=== PATIENT | female | born 1955 | race Caucasian/White ===

== ENCOUNTER → 2018-07-17 14:50 | Outpatient (CLI) | payer MEDICARE, BC, SELFPAY ==
[2018-07-17 15:23] LABS: Absolute Basophil Count 0.02 k/cumm (0.0-0.2); Absolute Eosinophil Count 0.14 k/cumm (0.0-0.7); Absolute Lymphocyte Count 0.72 k/cumm (1.2-3.4); Absolute Monocyte Count 0.66 k/cumm (0.11-0.7); Absolute Neutrophil Count 3.14 k/cumm (1.2-6.7); Basophils % 0.4; HCT 39.7 % (36.0-46.0); HGB 13.1 g/dL (12.0-15.5); Lymphocytes % 15.4; Mean Corpuscular Hemoglobin 29.8 pg (27.0-33.0); Mean Corpuscular Volume 90.4 fL (80-95); Mean Platelet Volume 10.2 fL (8.0-11.0); Monocytes % 14.1; Neutrophils % 67.1; Platelet Count 229 x1000/uL (130-400); RBC 4.39 m/cumm (4.00-5.20); RBC Distribution Width 14.8 % (11.7-14.6); White Blood Cell Count 4.68 k/cumm (4.4-10.8)
[2018-07-17 16:23] LABS: ALT 25 U/L (12-78); AST 20 U/L (15-37); Alkaline Phosphatase 55 U/L (46-116); BUN 19 mg/dL (7-18); Bilirubin, Total 0.4 mg/dL (0.2-1.0); CREATININE 1.05 mg/dL (0.55-1.02); Calcium 9.2 mg/dL (8.5-10.1); Chloride 105 mmol/L (98-107); Estimated GFR 52.93 (mL/min/1.73m2); Glucose 110 mg/dL (70-100); Potassium 4.1 mmol/L (3.5-5.1); Sodium 140 mmol/L (136-145); TSH 0.66 uIU/mL (0.358-3.74)
== END ==
PROVIDERS: PCP Emergency Medicine; Visit Provider Emergency Medicine
DX: E03.9 Hypothyroidism, unspecified (principal); R63.4 Abnormal weight loss
CPT/HCPCS: 36415; 80053; 84443; 85025

== ENCOUNTER → 2018-10-06 14:29 | Outpatient (BNVA) | payer MEDICARE, BC, SELFPAY | PROVIDERS: PCP Emergency Medicine; Referring Provider Emergency Medicine; Visit Provider Student in an Organized Health Care Education/Training Program | DX: M24.512 Contracture, left shoulder (principal); M62.542 Muscle wasting and atrophy, not elsewhere classified, left hand; M62.541 Muscle wasting and atrophy, not elsewhere classified, right hand | CPT/HCPCS: 99213 ==

== ENCOUNTER → 2019-04-15 14:24 | Outpatient (BNVA) | payer MEDICARE, BC, SELFPAY | PROVIDERS: PCP Emergency Medicine; Visit Provider Psychiatry & Neurology Neurology | DX: T45.1X1A Poisoning by antineoplastic and immunosuppressive drugs, accidental (unintentional), initial encounter (principal); G35 Multiple sclerosis; G40.109 Localization-related (focal) (partial) symptomatic epilepsy and epileptic syndromes with simple partial seizures, not intractable, without status epilepticus; G93.40 Encephalopathy, unspecified | CPT/HCPCS: 99214 ==

== ENCOUNTER 2019-07-14 00:30 | Outpatient (CLI) | payer MEDICARE, BC, SELFPAY ==
--- NOTE | 2019-07-14 13:25 | DI.MAMMO_ITS ---
SYMPTOMS/DIAGNOSIS: SCREENING, Z12.31 MAMMOGRAMS: Mammograms were interpreted according to the usual protocol including computer analysis with CAD system, tomosynthesis and C view imaging. The breasts are heterogeneously dense. No dominant mass or clumped microcalcification is identified in either breast. Current examination is compared with previous examinations including February 2017 and there has been no gross interval change in appearance in comparison with the previous studies. CONCLUSION: No specific evidence of malignancy at this time. Routine screening examinations are suggested at yearly intervals due to the family history of breast carcinoma. Category 1, breast density category C. MQSA ASSESSMENT OF FINDINGS: Negative. Category 1. Patient will receive a letter notifying them of these results. Bi-RADS category C. The breasts are heterogeneously dense, which may obscure small masses.
== END 2019-07-14 00:50 ==
PROVIDERS: PCP Emergency Medicine; Visit Provider Emergency Medicine
DX: Z12.31 Encounter for screening mammogram for malignant neoplasm of breast (principal); Z80.3 Family history of malignant neoplasm of breast
CPT/HCPCS: 77063; 77067

== ENCOUNTER → 2020-04-11 13:35 | Outpatient (BNVA) | payer MEDICARE, BC, SELFPAY | PROVIDERS: PCP Emergency Medicine; Referring Provider Emergency Medicine; Visit Provider Psychiatry & Neurology Neurology | DX: G40.109 Localization-related (focal) (partial) symptomatic epilepsy and epileptic syndromes with simple partial seizures, not intractable, without status epilepticus (principal); G35 Multiple sclerosis; G93.40 Encephalopathy, unspecified | CPT/HCPCS: 99214 ==

== ENCOUNTER 2020-08-11 04:29 | Outpatient (CLI) | payer MEDICARE, BC, SELFPAY ==
[2020-08-11 13:19] LABS: TSH 0.85 uIU/mL (0.36-3.74)
== END 2020-08-11 04:49 ==
PROVIDERS: PCP Emergency Medicine; Visit Provider Emergency Medicine
DX: E03.9 Hypothyroidism, unspecified (principal)
CPT/HCPCS: 36415; 84443

== ENCOUNTER 2021-04-04 14:48 | Outpatient (REF) | payer MEDICARE, BC, SELFPAY ==
[2021-04-04 21:20] LABS: Anion Gap 6.7 mmol/L (3-11); BUN 18 mg/dL (7-18); CO2 31.3 mmol/L (21.0-32.0); CREATININE 1.1 mg/dL (0.55-1.02); Calcium 9.9 mg/dL (8.5-10.1); Calculated LDL 137 mg/dL (<100); Chloride 104 mmol/L (98-107); Cholesterol 230 mg/dL (<200); Estimated GFR 49.69 (mL/min/1.73m2); Glucose 82 mg/dL (74-106); HDL Cholesterol 80 mg/dL (40-60); Potassium 3.7 mmol/L (3.5-5.1); Sodium 142 mmol/L (136-145); Triglyceride 67 mg/dL (<150)
== END 2021-04-04 14:49 | disposition home or self-care (01) ==
LOC: LBN 14:48
PROVIDERS: PCP Emergency Medicine; Visit Provider Emergency Medicine
DX: I10 Essential (primary) hypertension (principal)
CPT/HCPCS: 80048; 80061

== ENCOUNTER → 2021-04-10 13:47 | Outpatient (BNVA) | payer MEDICARE, BC, SELFPAY | PROVIDERS: PCP Emergency Medicine; Referring Provider Emergency Medicine; Visit Provider Psychiatry & Neurology Neurology | DX: G40.109 Localization-related (focal) (partial) symptomatic epilepsy and epileptic syndromes with simple partial seizures, not intractable, without status epilepticus (principal); G35 Multiple sclerosis; G93.40 Encephalopathy, unspecified; I69.852 Hemiplegia and hemiparesis following other cerebrovascular disease affecting left dominant side; G82.50 Quadriplegia, unspecified; R13.10 Dysphagia, unspecified; R47.1 Dysarthria and anarthria | CPT/HCPCS: 99215 ==

== ENCOUNTER 2021-07-24 01:09 | Outpatient (CLI) | payer MEDICARE, BC, SELFPAY ==
--- NOTE | 2021-07-24 07:45 | DI.MAMMO_ITS ---
Exam(s) MAMMO SCREENING EXAM: MAMMO SCREENING CLINICAL HISTORY: screening,Z12.39 TECHNIQUE: Bilateral full field digital CC and MLO mammographic images were obtained with 3D tomosyn thesis and utilizing computer aided detection (CAD). COMPARISON: Available for comparison. FINDINGS: Masses/Architectural Distortion: None seen. Microcalcifications: No suspicious pleomorphic-type are seen. Skin Thickening/Nipple Retraction: None. IMPRESSION: 1. No significant interval change with no specific features of malignancy noted. 2. Unless there is more urgent need, screening mammography is recommended, as per [employer] guidelines. BI-RADS Category 1 - Negative Breast Density - Category C - Heterogeneously dense Breast density category C or D implies that the patient has dense breast tissue. Dense breast tissue is very common and is not abnormal but dense breast tissue can make it harder to find cancer on a ma mmogram. Also, dense breast tissue may increase their breast cancer risk. This information about the result of the mammogram report was provided to the patient to raise their awareness. Use this report when you speak with the patient about their risks for breast cancer, which includes their family hist ory. At that time, you may recommend for more screening tests (Ultrasound or MRI) as they might be us eful based on their risk. A negative radiographic report should not delay biopsy if a dominant or clinically suspicious mass is present. Up to ten percent of cancers are not identified on mammography. A negative report may reinforce clinical impression. Adenosis and dense breasts may obscure an underlying neoplasm. False positive reports average 6 to 10%. Patient will receive a letter notifying them of these results.
== END 2021-07-24 01:29 ==
PROVIDERS: PCP Emergency Medicine; Visit Provider Emergency Medicine
DX: Z12.31 Encounter for screening mammogram for malignant neoplasm of breast (principal)
CPT/HCPCS: 77063; 77067

== ENCOUNTER 2021-07-28 03:43 | Outpatient (CLI) | payer MEDICARE, BC, SELFPAY ==
[2021-07-28 14:09] LABS: Abs Immature Grans 0.01 10^3/uL (0.0-0.06); Absolute Basophil Count 0.02 10^3/uL (0.0-0.2); Absolute Eosinophil Count 0.08 10^3/uL (0.0-0.7); Absolute Lymphocyte Count 0.82 10^3/uL (1.2-3.4); Absolute Monocyte Count 0.67 10^3/uL (0.1-0.8); Absolute Neutrophil Count 3.06 10^3/uL (1.2-6.7); Basophils % 0.4; Eosinophils % 1.7; HGB 12.4 g/dL (11.2-15.7); Immature Grans % 0.2; Lymphocytes % 17.6; MCH 28.5 pg (27.0-33.0); MCHC 31.8 % (32.0-36.0); MCV 89.7 fL (80-95); MPV 9.3 fL (8.0-11.0); Monocytes % 14.4; Neutrophils % 65.7; Nucleated RBC 0 %; Platelet Count 227 10^3/uL (130-400); RBC 4.35 10^6/uL (3.93-5.22); RDW 13.5 % (11.7-14.6); RDW-SD 44.8 fL; WBC 4.66 10^3/uL (4.4-10.8)
== END 2021-07-28 03:44 | disposition home or self-care (01) ==
LOC: LBO 03:43
PROVIDERS: PCP Emergency Medicine; Visit Provider Psychiatry & Neurology Neurology
DX: G35 Multiple sclerosis (principal)
CPT/HCPCS: 36415; 85025

== ENCOUNTER 2021-07-29 12:16 | Emergency (ER) | payer MEDICARE, BC, SELFPAY ==
--- NOTE | 2021-07-29 12:15 | RT.EKG_ITS ---
APPROVED REPORT Exam: Resting ECG Reason for Exam: syncope Patient Location: E HR:70 bpm ECG Measurements Heart Rate 70 AXIS VA 178 P 66 QRSd 86 QRS 80 QT 392 T 50 QTc 423 Conclusion Sinus rhythm...normal P axis, V-rate 60- 99
[2021-07-29 12:22] VITALS: BP 164/83; PULSE 76; RESP 16; TEMP 36.5; O2SAT 99
--- NOTE | 2021-07-29 12:50 | ED.GENADUL_ITS ---
Discharge Plan Disposition Patient Disposition: HOME Condition: Stable Discharge Details Clinical Impression: Seizure Primary Care Provider: Rom Atwood ED Provider: Tre Ackerman Home Meds and New Rx's Prescriptions: Continued guaifenesin [Mucinex] 600 mg tablet extended release 12hr 600 mg PO BID Qty: 60 RF: 6 docusate sodium 100 MG capsule 1 cap PO daily prn RF: 0 coenzyme Q10 [CoQ-10] 100 MG capsule 100 mg PO BID RF: 0 calcium citrate-vitamin D3 [Calcium Citrate +] 1 EACH tablet 1 ea PO BID RF: 0 acetylcarnitine 500 MG capsule 500 mg PO DAILY RF: 0 [employer] 10 drp PO DAILY RF: 0 VITAL BRAIN POWDER 1 tsp PO DAILY RF: 0 melatonin 10 MG tablet,ext release multiphase 10 mg PO prn qhs RF: 0 multivitamin [Daily Multi-Vitamin] 1 EACH tablet 1 ea PO DAILY RF: 0 ipriflavone 300 mg PO BID RF: 0 strontium 1 cap PO DAILY RF: 0 cholecalciferol (vitamin D3) 1,000 unit tablet,chewable 4,000 unit PO DAILY Qty: 90 RF: 3 levothyroxine 100 mcg tablet 100 mcg PO DAILY Qty: 90 RF: 4 lorazepam [Ativan] 1 mg tablet 1 mg PO HS Qty: 90 RF: 3 sertraline 50 mg tablet 50 mg PO DAILY Qty: 90 RF: 4 ibuprofen [Advil Liqui-Gel] 200 MG capsule 400 mg PO PRN PRNRF: 0 Discharge Instructions Instructions: Recurrent Seizures in Adults (ED) Additional Instructions: follow up with your neurologist If you have fevers, multiple recurrent seizures or feel more ill return to the emergency department Medical Decision Making 65 yo female with history autoimmune encephalopathy with resultant quadriparesis, dysarthria, dysphagia, and cognitive loss, relapsing-remitting MS, seizure disorder who has come off her meds, prior ich from fall per chart review, who comes in with ems after she believes she had a seizure. She states she was getting into the shower when he left arm flexed at the elbow and was stuck this way and she couldn't move her left leg. She had no loc and was with her during this and lasted about 5 minutes. She currently has no complaints, denies fevers, chills, chest pain, abdomen pain. On exam she has very mild dysarthria, mild left nasolabial fol flattening, noraml quality improvement consultant strength bilaterally, normal strength of the right arm, left arm she has no strength at the bicep, and about 3/5 strength if the deltoid, and 5/5 at the triceps which is her baseline per her and on chart reivew. She has 5/5 strength in the lower extremities and normal sensation in all extremities. She did come off antiepileptics recently in the past month or so so suspect she did have a seizure, is back at baseline now so doubt cva. Will obtain labs to evaluate for electrolyte abnormalities and obtain ct head and reassess. pt continues to feel well and at her baseline. LAbs and imaging unremarkble. Discussed with her and she is going to call her neurologists office this week and discuss restarting her antiepileptic, hasn't had a seizure in years and has apparenlty been off her seizure med for over a month. Return precautions given Differential Diagnosis Differential Diagnosis: seizure, tia, electrolyte abnormality Medical Records Medical records reviewed: Yes I reviewed the patient's medical records. Imaging Data Radiologic Study: Attestation: I personally reviewed and interpreted this imaging study as follows: Imaging: CT Scan Radiologist's impression: no acute findings Lab Data Lab results reviewed: Yes I reviewed the patient's lab results. ECG Data Attestation: I personally reviewed and interpreted this ECG (s) as follows: Prior ECG tracings: not available for review Interpretation: sinus rhtyhm, rate of 70, no acute st t wave ischemic findings. HPI General Mode of arrival: EMS . Date/Time Provider Initiated Documentation: 07/29/21 12:18 . Limitations to Documentation: no limitations . Information obtained by: patient and family . History of Present Illness 65 year old F presents to the emergency department with the chief complaint of seizure, described as moderate, Patient started experiencing this hour(s) (1) and it has been now resolved. No relieving factors improve symptom(s), No exacerbating factors reported . Patient did receive the following treatments prior to arrival, none Related Data Home Medications Medication Instructions Recorded Confirmed docusate sodium 1 cap PO daily prn 02/27/13 07/29/21 acetylcarnitine 500 mg PO DAILY 10/14/15 07/29/21 calcium citrate-vitamin D3 1 ea PO BID 10/14/15 07/29/21 [Calcium Citrate +] coenzyme Q10 [CoQ-10] 100 mg PO BID 10/14/15 07/29/21 melatonin 10 mg PO prn qhs 03/05/16 07/29/21 ibuprofen [Advil Liqui-Gel] 400 mg PO PRN PRN 04/24/16 07/29/21 multivitamin [Daily Multi-Vitamin] 1 ea PO DAILY 07/02/17 07/29/21 Ipriflavone 300 mg PO BID 01/28/18 07/29/21 Strontium 1 cap PO DAILY 01/28/18 07/29/21 cholecalciferol (vitamin D3) 25 4,000 unit PO DAILY #90 tab 11/13/18 07/29/21 mcg (1,000 unit) chewable tablet guaifenesin 600 mg tablet, 600 mg PO BID #60 tab 05/10/20 07/29/21 extended release 12 hr levothyroxine 100 mcg tablet 100 mcg PO DAILY #90 tab-cap 07/26/20 07/29/21 lorazepam 1 mg tablet 1 mg PO HS #90 tab 12/16/20 07/29/21 sertraline 50 mg tablet 50 mg PO DAILY #90 tab-cap 06/16/21 07/29/21 Previous Rx's Medication Instructions Recorded guaifenesin 600 mg tablet, 600 mg PO BID #60 tab 05/10/20 extended release 12 hr levothyroxine 100 mcg tablet 100 mcg PO DAILY #90 tab-cap 07/26/20 lorazepam 1 mg tablet 1 mg PO HS #90 tab 12/16/20 sertraline 50 mg tablet 50 mg PO DAILY #90 tab-cap 06/16/21 Allergies Allergy/AdvReac Type Severity Reaction Status Date / Time azathioprine [From Imuran] AdvReac Severe hepatitis Verified 07/29/21 12:32 venlafaxine AdvReac elevated BP Verified 07/29/21 12:32 General Stated Complaint: CVA/TIA HUMBLE: 2 Review of Systems All systems reviewed & are unremarkable except as noted in HPI and below Constitutional Constitutional: Denies chills and Denies fever(s) Cardiovascular Cardiovascular: Denies chest pain and Denies dyspnea Respiratory Respiratory: Denies cough and Denies dyspnea Gastrointestinal Gastrointestinal: Denies abdominal pain, Denies nausea and Denies vomiting Musculoskeletal Musculoskeletal: Denies joint swelling [facility] Medical History Acute cystitis Age-related osteoporosis without current pathological fracture (11/05/17) Allergic rhinitis Anxiety Closed fracture of left hip with routine healing (06/06/16) pinning Depressive disorder Encephalopathy (03/06/17) 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 resolving quadriplegia. Residual frontal lobe damage. 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 x months, quadriplegia resolving, frontal lobe damage Insomnia Joint contracture of the upper arm (08/08/15) Leukocytopenia, unspecified secondary to Cytoxan Multiple sclerosis diagnosis questionable Nocturia more than twice per night (09/03/16) Subdural hematoma (06/06/16) Urgency of urination (09/03/16) Surgical History section Colonoscopy - MAC (12/11/17) History of section Replacement of total knee joint LEFT S/P percutaneous endoscopic gastrostomy (PEG) tube placement Status post hernia repair Status post total knee replacement Family History Mother Diabetes Essential hypertension Neoplasm COLON Father Diabetes Essential hypertension Neoplasm SQUAMOUS STAGE 4 Stroke Brother Essential hypertension Stroke Brother Essential hypertension Stroke Brother Substance abuse Essential hypertension Brother Essential hypertension Social History Smoking/Tobacco Use Status: Former Tobacco Use Tobacco: How many years used: 12 Second Hand Exposure: Yes Smoking risk assessment performed?: Yes Alcohol Intake: never Drug use: Never Caregiver/Support person: Yes Household members: spouse Housing: house Communication Needs: None Do you need help understanding health information?: Rarely current occupation: Retired teacher. On disability. Pets and animals: Yes Sexually active: No Do you think of yourself as: straight/heterosexual Current gender identity: female What is your relationship status?: How often do you talk on the phone with friends or family?: three or more times per week How often do you get together with friends or relatives?: once per week Do you belong to any clubs or organized social groups?: no Panel score (0-1 are the most socially isolated patients): 2 What type of physical activity do you participate in: walking and other Details: stationary bike, arm pulleys, Duration: 45-60 minutes/day Anh/Advent: No preference Special anh needs: No Seatbelt use: always Helmet use: Yes Helmet use: always Drive intox or ride w/intox sulky driver: No Do you feel safe in your relationship?: Yes Exam Const General: no acute distress Orientation: alert HENMT Head: normal to inspection Ears: external ears normal General nose exam: external nose normal Mouth: moist mucous membranes Eyes General: appearance normal, both eyes and all related structures Neck Neck: normal visual inspection Resp Effort & Inspection: normal respiratory effort and able to speak in complete sentences Cardio Rate: regular rate Skin General skin exam: no rashes or lesions noted Neuro General: patient alert and patient oriented x3 Extrem General: capillary refill normal Psych Mental Status: mental status grossly normal Course Vital Signs Vital signs: Vital Signs Temperature 36.5 C 07/29/21 12:22 Pulse 76 07/29/21 12:22 Respiratory Rate 16 07/29/21 12:22 Blood Pressure 164/83 H 07/29/21 12:22 Pulse Oximetry 99 07/29/21 12:22 Temperature 36.5 C 07/29/21 12:22 Temperature Source Temporal Artery Scan 07/29/21 12:22 Pulse 76 07/29/21 12:22 Respiratory Rate 16 07/29/21 12:22 Blood Pressure 164/83 H 07/29/21 12:22 Pulse Oximetry 99 07/29/21 12:22 Oxygen Delivery Method Room Air 07/29/21 12:22 Oxygen Flow Rate 0 07/29/21 12:22
[2021-07-29 13:14] LABS: Abs Immature Grans 0.03 10^3/uL (0.0-0.06); Absolute Basophil Count 0.02 10^3/uL (0.0-0.2); Absolute Eosinophil Count 0.04 10^3/uL (0.0-0.7); Absolute Lymphocyte Count 0.68 10^3/uL (1.2-3.4); Absolute Neutrophil Count 2.67 10^3/uL (1.2-6.7); Basophils % 0.5; HGB 13.5 g/dL (11.2-15.7); Immature Grans % 0.8; Lymphocytes % 17.3; MCH 28.7 pg (27.0-33.0); MCHC 32.1 % (32.0-36.0); MCV 89.4 fL (80-95); MPV 9.6 fL (8.0-11.0); Monocytes % 12.7; Neutrophils % 67.7; Nucleated RBC 0 %; Platelet Count 229 10^3/uL (130-400); RDW 13.5 % (11.7-14.6); RDW-SD 43.9 fL; WBC 3.94 10^3/uL (4.4-10.8)
[2021-07-29 13:32] LABS: ALT 29 U/L (14-59); AST 20 U/L (15-37); Albumin 4.8 g/dL (3.4-5.0); Alkaline Phosphatase 51 U/L (46-116); BUN 17 mg/dL (7-18); Bilirubin, Total 0.6 mg/dL (0.2-1.0); Calcium 11.2 mg/dL (8.5-10.1); Chloride 102 mmol/L (98-107); Estimated GFR 55.47 (mL/min/1.73m2); Glucose 117 mg/dL (74-106); Sodium 140 mmol/L (136-145); Total Protein 8.3 g/dL (6.4-8.2); Troponin I < 0.05 ng/mL (<0.06)
[2021-07-29] MEDS: Omnipaque 350 MG/ML 100 ML BTL IJ (13:40)
[2021-07-29] MEDS: Normal Saline Flush 10 ML SYR IVP (13:41)
--- NOTE | 2021-07-29 13:45 | DI.CT_ITS ---
Exam(s) CT BRAIN NECK CTA EXAM: CT BRAIN NECK CTA CLINICAL HISTORY: ?seizure vs tia. TECHNIQUE: Imaging Protocol: Axial CT angiography was performed with multi-slice acquisition and mu lti-planar and/or 3D reconstructions. CONTRAST MATERIAL: Intravenous: Omnipaque 350 Contrast volume:85 cc FINDINGS: CT Head W/O and W contrast: Ventricles and Extra axial spaces: Stable ventricular dilatation, particularly the temporal horns. Hemorrhage: None. Cerebral parenchyma: Stable areas of low attenuation in the white matter. No acute infarct or mass. Midline shift: None. Brainstem/Cerebellum: Normal. Calvarium: Normal. Visualized Paranasal sinuses/Mastoids: Mucous retention cysts maxillary sinuses and right ethmoid sin us. Soft Tissues: Unremarkable. Enhancement: Normal. CTA Brain W: Internal Carotid Arteries: Petrous: Normal. Cavernous: Normal. Cerebral: Normal. Middle Cerebral Arteries: Right: No aneurysm, occlusion or significant stenosis. Left: No aneurysm, occlusion or significant stenosis. Anterior Cerebral Arteries: Right: No aneurysm, occlusion or significant stenosis. Left: No aneurysm, occlusion or significant stenosis. Posterior cerebral Arteries: Right: No aneurysm, occlusion or significant stenosis. Left: No aneurysm, occlusion or significant stenosis. Vertebral Arteries: Right: No aneurysm, occlusion or significant stenosis. Left: No aneurysm, occlusion or significant stenosis. Basilar Artery: No aneurysm, occlusion or significant stenosis. CTA Neck W: Common Carotid: Right: No aneurysm, occlusion or significant stenosis. Left: No aneurysm, occlusion or significant stenosis. External Carotid: Right: No aneurysm, occlusion or significant stenosis. Left: No aneurysm, occlusion or significant stenosis. Internal Carotid: Right: No aneurysm, occlusion or significant stenosis. Left: No aneurysm, occlusion or significant stenosis. Vertebral Artery: Right: No aneurysm, occlusion or significant stenosis. Left: No aneurysm, occlusion or significant stenosis. Lung Apices: Normal. Bones: Degenerative changes at C5-6 well as facet joints greatest at C 2 3 and C3-4. Soft Tissues: Normal. IMPRESSION: 1. Normal CTA examination of the [place]. 2. Stable ventricular dilatation and white matter changes of small vessel disease. No acute abnormal ity of the brain. 3. Normal CTA examination of the neck. RADIATION DOSE DELIVERED: 1,715.68mGy.cm Total DLP DATA REPOSITORY: All CT scans at this facility are submitted to the National Radiology Data Registry (NRDR) Dose Index Registry (DIR) with the [employer] (A[employer]). RADIATION OPTIMIZATION: All CT scans at this facility use at least one of these dose optimization te chniques: automated exposure control; mA and/or kV adjustment per patient size (includes targeted exa ms where dose is matched to clinical indication); or iterative reconstruction.
[2021-07-29 13:54] LABS: Bilirubin Negative (Negative); Blood Negative (Negative); Clarity Sl Cloudy (Clear); Glucose Negative (Negative); Ketones Negative (Negative); Leukocyte Esterase Negative (Negative); Nitrite Negative (Negative); Specific Gravity 1.015 (1.005-1.025); Urobilinogen 0.2 EU/dL (Up TO 0.2); pH 8.5 (5-8)
--- NOTE | 2021-07-29 14:00 | DI.VRAD_ITS ---
PROCEDURE INFORMATION: Exam: CT Angiography Head With Contrast, Arteriography Exam date and time: 07/29/2021 12:42 PM Age: 65 years old Clinical indication: Other: ? Seizure vs TIA TECHNIQUE: Imaging protocol: Computed tomography angiography of the head with contrast. Exam focused on the arteries. 3D rendering (Not supervised by radiologist): MIP and/or 3D reconstructed images were created by the technologist. Radiation optimization: All CT scans at this facility use at least one of these dose optimization techniques: automated exposure control; mA and/or kV adjustment per patient size (includes targeted exams where dose is matched to clinical indication); or iterative reconstruction. Contrast material: OMNIPAQUE 350; Contrast volume: 85 ml; Contrast route: INTRAVENOUS (IV); COMPARISON: MRI - BRAIN W/WO CONTRAST 08/12/2017 5:[address] 08/06/2017 FINDINGS: ANTERIOR CIRCULATION: Right internal carotid artery: Unremarkable. Intracranial segment is patent with no significant stenosis. No aneurysm. Right middle cerebral artery: Unremarkable. No occlusion or significant stenosis. No aneurysm. Right anterior cerebral artery: Unremarkable. No occlusion or significant stenosis. No aneurysm. Left internal carotid artery: Unremarkable. Intracranial segment is patent with no significant stenosis. No aneurysm. Left middle cerebral artery: Unremarkable. No occlusion or significant stenosis. No aneurysm. Left anterior cerebral artery: Unremarkable. No occlusion or significant stenosis. No aneurysm. POSTERIOR CIRCULATION: Right vertebral artery: Unremarkable. No occlusion or significant stenosis. No aneurysm. Left vertebral artery: Unremarkable. No occlusion or significant stenosis. No aneurysm. Basilar artery: Unremarkable. No occlusion or significant stenosis. No aneurysm. Right posterior cerebral artery: Unremarkable. No occlusion or significant stenosis. No aneurysm. Left posterior cerebral artery: Unremarkable. No occlusion or significant stenosis. No aneurysm. Brain: Stable diffuse parenchymal atrophy. Stable areas of very low-density in the periventricular and deep white matter of the cerebral hemispheres and magda, consistent with chronic small vessel ischemic changes. Cerebral ventricles: Stable bilateral ventricular enlargement. Bones/joints: Advanced degenerative arthritis in the temporomandibular joints. Soft tissues: Unremarkable. Paranasal sinuses: Retention cysts in the maxillary antra and right ethmoid sinus. IMPRESSION: 1. No acute intracranial abnormality 2. No stenosis nor occlusion in the visualized intracranial circulation 3. Stable diffuse parenchymal atrophy and chronic ischemic changes compared with 2017 PROCEDURE INFORMATION: Exam: CT Angiography Neck With Contrast Exam date and time: 07/29/2021 12:42 PM Age: 65 years old Clinical indication: Other: ? Seizure vs TIA TECHNIQUE: Imaging protocol: Computed tomography angiography of the neck with contrast. 3D rendering (Not supervised by radiologist): MIP and/or 3D reconstructed images were created by the technologist. Radiation optimization: All CT scans at this facility use at least one of these dose optimization techniques: automated exposure control; mA and/or kV adjustment per patient size (includes targeted exams where dose is matched to clinical indication); or iterative reconstruction. Contrast material: OMNIPAQUE 350; Contrast volume: 85 ml; Contrast route: INTRAVENOUS (IV); COMPARISON: MRI - BRAIN W/WO CONTRAST 08/12/2017 5:37 PM FINDINGS: Right common carotid artery: No stenosis. No dissection or occlusion. Right internal carotid artery: No stenosis of the extracranial segment. No dissection or occlusion. Right external carotid artery: No occlusion or stenosis of the origin. Left common carotid artery: No stenosis. No dissection or occlusion. Left internal carotid artery: No stenosis of the extracranial segment. No dissection or occlusion. Left external carotid artery: No occlusion or stenosis of the origin. Right vertebral artery: No stenosis. No dissection or occlusion. Left vertebral artery: No stenosis. No dissection or occlusion. Soft tissues: Normal. No significant soft tissue swelling. Bones/joints: Degenerative arthritis in the cervical facets, most marked on the left at C2-C3 and C3-C4. Narrowed C5-C6 interspace with endplate osteophyte formation. Degenerative arthritis between the anterior arch of C1 and the odontoid. IMPRESSION: No stenosis nor occlusion bilateral carotid arteries and vertebral arteries. REFERENCES: NASCET CRITERIA. The degree of internal carotid artery stenosis is based on NASCET criteria. Normal is no stenosis. Mild is less than 50% stenosis. Moderate is 50-69% stenosis. Severe is 70% to 99% stenosis. Total occlusion is no detectable patent lumen. Dictated and Authenticated by: Constance Gregg MD. Ordering:TRUPTI [place] MD
[2021-07-29 14:50] VITALS: BP 164/83; PULSE 76; RESP 16; TEMP 36.5; O2SAT 99
== END 2021-07-29 15:06 | disposition home or self-care (01) ==
LOC: ER 14:44
PROVIDERS: Emergency Provider Emergency Medicine; PCP Emergency Medicine
DX: G40.109 Localization-related (focal) (partial) symptomatic epilepsy and epileptic syndromes with simple partial seizures, not intractable, without status epilepticus (principal); M62.81 Muscle weakness (generalized)
CPT/HCPCS: 70496; 70498; 80053; 93005; 99285; 81003; 83735; 84484; 85025; 93010; 99284; G0378; J3490

== ENCOUNTER 2021-07-29 20:00 | Observation (INO) | payer MEDICARE, BC, SELFPAY ==
[2021-07-29] VITALS (15 sets, daily range): BP systolic 127–151; BP diastolic 78–92; PULSE 67–88; RESP 11–25; TEMP 36.3–36.6; O2SAT 92–99
--- NOTE | 2021-07-29 20:11 | W.ED.GENAD ---
Discharge Plan Disposition Patient Disposition: [facility] INPATIENT Condition: Stable Discharge Details Chief Complaint: Seizure Clinical Impression: Recurrent seizures Primary Care Provider: Rom Atwood ED Provider: Clayton Larsen Home Meds and New Rx's Prescriptions: No Action guaifenesin [Mucinex] 600 mg tablet extended release 12hr 600 mg PO BID Qty: 60 RF: 6 docusate sodium 100 MG capsule 1 cap PO daily prn RF: 0 coenzyme Q10 [CoQ-10] 100 MG capsule 100 mg PO BID RF: 0 calcium citrate-vitamin D3 [Calcium Citrate +] 1 EACH tablet 1 ea PO BID RF: 0 acetylcarnitine 500 MG capsule 500 mg PO DAILY RF: 0 [employer] 10 drp PO DAILY RF: 0 VITAL BRAIN POWDER 1 tsp PO DAILY RF: 0 melatonin 10 MG tablet,ext release multiphase 10 mg PO prn qhs RF: 0 multivitamin [Daily Multi-Vitamin] 1 EACH tablet 1 ea PO DAILY RF: 0 ipriflavone 300 mg PO BID RF: 0 strontium 1 cap PO DAILY RF: 0 cholecalciferol (vitamin D3) 1,000 unit tablet,chewable 4,000 unit PO DAILY Qty: 90 RF: 3 levothyroxine 100 mcg tablet 100 mcg PO DAILY Qty: 90 RF: 4 lorazepam [Ativan] 1 mg tablet 1 mg PO HS Qty: 90 RF: 3 sertraline 50 mg tablet 50 mg PO DAILY Qty: 90 RF: 4 ibuprofen [Advil Liqui-Gel] 200 MG capsule 400 mg PO PRN PRNRF: 0 Medical Decision Making 65 yo female with history autoimmune encephalopathy with resultant quadriparesis, dysarthria, dysphagia, and cognitive loss, relapsing-remitting MS, seizure disorder who presents for seizure. Historically the patient developed partial seizures in 2006, and at that time she was started on multiple medications for suspected MS, eventually when the patient came off of these medications she developed a quadriplegic and vented episode. She had one episode of a total body tonic-clonic seizure at that time and was then started on zonisamide. She has been on that for the last few years, then over the last 2 years they have been slowly titrating down. In March they decided to stop the medication altogether and has had no complications since then. With no other recent medication changes the patient had been doing well until today when she was getting out of the shower with her when she again developed a bit of a focal left-sided seizure which the states was similar to the seizure she got in 2006 when all this began. She was seen and assessed today, and had an unremarkable work-up for that seizure, CT scan/CTA of the head and neck was negative. She was discharged home with recommendations for close neurology follow-up. Unfortunately after getting home she had a repeat episode left-sided focal seizure, she was communicative during the seizure episode and then towards the end of it she became postictal and nonresponsive. EMS was again called and the patient was brought here for further assessment. Patient is back to her baseline upon arrival to the ED. Patient does admit to a very mild frontal headache, but no other complaints. No trauma. No new focal weakness. Physical exam demonstrates chronic weakness and restriction of motion for the left upper extremity, no other significant focal neurologic deficits. She is slightly confused and does think that it is 2012. Patient had a CT/CTA earlier this evening which was negative for any acute process per virtual radiology. Work-up at that time was unremarkable. Patient's physical exam appears unchanged, however her recurrent focal seizures is concerning. With her notable previous medical problems, as well as her previous use of zonisamide I will contact [facility] neurology services prior to starting new medication for her. She was initially seen by the [facility] neurology services in the past, and is now seen locally by Dr. Irvin. We will gently rehydrate, monitor closely and reassess. 9 PM Laboratory work-up is returned unremarkable. Patient remained stable. Discussed the case with Dr. Flores of neurology at the [facility], discussed the case with her, including imaging findings from today. At this time they agree with the need for admission and restarting of the antiepileptic medications. However zonisamide does require titration up. They recommend starting Keppra 2 g now, having neurology evaluation, potentially restarting zonisamide, and in the meantime continuing Keppra at 750 mg twice daily. Discussed the case with Dr. Samson, he agrees with the assessment and plan. I have extensively reviewed the treatment plan with the patient. I have addressed all patient concerns at this time. I have also discussed the plan with the admitting physician and they agree with the current assessment and plan and have agreed to assume responsibility for the patient. All parties demonstrate verbal understanding and agreement with our assessment and plan at this time. The documentation in this chart was dictated using [employer] dictation software. Please excuse any dictation errors. IMPRESSION: 1. No acute intracranial abnormality 2. No stenosis nor occlusion in the visualized intracranial circulation 3. Stable diffuse parenchymal atrophy and chronic ischemic changes compared with 2017 IMPRESSION: No stenosis nor occlusion bilateral carotid arteries and vertebral arteries. HPI General Date/Time Provider Initiated Documentation: 07/29/21 20:05. HPI Narrative: 65 yo female with history autoimmune encephalopathy with resultant quadriparesis, dysarthria, dysphagia, and cognitive loss, relapsing-remitting MS, seizure disorder who presents for seizure. Historically the patient developed partial seizures in 2006, and at that time she was started on multiple medications for suspected MS, eventually when the patient came off of these medications she developed a quadriplegic and vented episode. She had one episode of a total body tonic-clonic seizure at that time and was then started on zonisamide. She has been on that for the last few years, then over the last 2 years they have been slowly titrating down. In March they decided to stop the medication altogether and has had no complications since then. With no other recent medication changes the patient had been doing well until today when she was getting out of the shower with her when she again developed a bit of a focal left-sided seizure which the states was similar to the seizure she got in 2006 when all this began. She was seen and assessed today, and had an unremarkable work-up for that seizure, CT scan/CTA of the head and neck was negative. She was discharged home with recommendations for close neurology follow-up. Unfortunately after getting home she had a repeat episode left-sided focal seizure, she was communicative during the seizure episode and then towards the end of it she became postictal and nonresponsive. EMS was again called and the patient was brought here for further assessment. Patient is back to her baseline upon arrival to the ED. Patient does admit to a very mild frontal headache, but no other complaints. No trauma. No new focal weakness. Related Data Home Medications Medication Instructions Recorded Confirmed docusate sodium 1 cap PO daily prn 02/27/13 07/29/21 acetylcarnitine 500 mg PO DAILY 10/14/15 07/29/21 calcium citrate-vitamin D3 1 ea PO BID 10/14/15 07/29/21 [Calcium Citrate +] coenzyme Q10 [CoQ-10] 100 mg PO BID 10/14/15 07/29/21 melatonin 10 mg PO prn qhs 03/05/16 07/29/21 ibuprofen [Advil Liqui-Gel] 400 mg PO PRN PRN 04/24/16 07/29/21 multivitamin [Daily Multi-Vitamin] 1 ea PO DAILY 07/02/17 07/29/21 Ipriflavone 300 mg PO BID 01/28/18 07/29/21 Strontium 1 cap PO DAILY 01/28/18 07/29/21 cholecalciferol (vitamin D3) 25 4,000 unit PO DAILY #90 tab 11/13/18 07/29/21 mcg (1,000 unit) chewable tablet guaifenesin 600 mg tablet, 600 mg PO BID #60 tab 05/10/20 07/29/21 extended release 12 hr levothyroxine 100 mcg tablet 100 mcg PO DAILY #90 tab-cap 07/26/20 07/29/21 lorazepam 1 mg tablet 1 mg PO HS #90 tab 12/16/20 07/29/21 sertraline 50 mg tablet 50 mg PO DAILY #90 tab-cap 06/16/21 07/29/21 Previous Rx's Medication Instructions Recorded guaifenesin 600 mg tablet, 600 mg PO BID #60 tab 05/10/20 extended release 12 hr levothyroxine 100 mcg tablet 100 mcg PO DAILY #90 tab-cap 07/26/20 lorazepam 1 mg tablet 1 mg PO HS #90 tab 12/16/20 sertraline 50 mg tablet 50 mg PO DAILY #90 tab-cap 06/16/21 Allergies Allergy/AdvReac Type Severity Reaction Status Date / Time azathioprine [From Imuran] AdvReac Severe hepatitis Verified 07/29/21 20:05 venlafaxine AdvReac elevated BP Verified 07/29/21 20:05 General Stated Complaint: Seizure HUMBLE: 3 Review of Systems All systems reviewed & are unremarkable except as noted in HPI and below PFSH Medical History Acute cystitis Age-related osteoporosis without current pathological fracture (11/05/17) Allergic rhinitis Anxiety Closed fracture of left hip with routine healing (06/06/16) pinning Depressive disorder Encephalopathy (03/06/17) 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 resolving quadriplegia. Residual frontal lobe damage. 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 x months, quadriplegia resolving, frontal lobe damage Insomnia Joint contracture of the upper arm (08/08/15) Leukocytopenia, unspecified secondary to Cytoxan Multiple sclerosis diagnosis questionable Nocturia more than twice per night (09/03/16) Subdural hematoma (06/06/16) Urgency of urination (09/03/16) Surgical History section Colonoscopy - MAC (12/11/17) History of section Replacement of total knee joint LEFT S/P percutaneous endoscopic gastrostomy (PEG) tube placement Status post hernia repair Status post total knee replacement Family History Mother Diabetes Essential hypertension Neoplasm COLON Father Diabetes Essential hypertension Neoplasm SQUAMOUS STAGE 4 Stroke Brother Essential hypertension Stroke Brother Essential hypertension Stroke Brother Substance abuse Essential hypertension Brother Essential hypertension Social History Smoking/Tobacco Use Status: Former Tobacco Use Tobacco: How many years used: 12 Second Hand Exposure: Yes Smoking risk assessment performed?: Yes Alcohol Intake: never Drug use: Never Caregiver/Support person: Yes Household members: spouse Housing: house Communication Needs: None Do you need help understanding health information?: Rarely current occupation: Retired teacher. On disability. Pets and animals: Yes Sexually active: No Do you think of yourself as: straight/heterosexual Current gender identity: female What is your relationship status?: How often do you talk on the phone with friends or family?: three or more times per week How often do you get together with friends or relatives?: once per week Do you belong to any clubs or organized social groups?: no Panel score (0-1 are the most socially isolated patients): 2 What type of physical activity do you participate in: walking and other Details: stationary bike, arm pulleys, Duration: 45-60 minutes/day Anh/Bahai: No preference Special anh needs: No Seatbelt use: always Helmet use: Yes Helmet use: always Drive intox or ride w/intox dump truck driver: No Do you feel safe at home: Yes Do you feel safe in your relationship?: Yes Exam Narrative Exam Narrative: 1.Const: Thin, atraumatic, well Kept 2.Eyes: PERRL, no conjunctival injection, and symmetrical lids. 3.ENT: Atraumatic external nose and ears. Moist MM. Neck: Symmetric, trachea midline, No thyromegaly. There is no evidence of raccoon eyes, butler sign, CSF rhinorrhea, mastoid tenderness, cranial crepitus, hemotympanum, exophthalmos, or hyphema. Patient demonstrates intact dentition with no signs of tooth avulsion or fracture, no signs of jaw deformity, no evidence of a LeFort's fracture, with an intact palate, nose and orbital region. There is no evidence of a nasal septal hematoma. No proptosis. Jaw closes symmetrically. Airway is clear. 4.CVS: +S1/S2, No murmurs or gallops. Peripheral pulses 2+ and equal in all extremities. Brisk capillary refill in all extremities. 5.RESP: Unlabored respiratory effort. Clear to auscultation bilaterally. No wheezes rales or rhonchi 6.GI: Soft, Nontender/Nondistended, No hepatosplenomegaly. No guarding or rebound. 7.MSK: Normocephalic/Atraumatic, Extremities w/o deformity or ttp No cyanosis or clubbing. Patient demonstrates normal strength in the lower extremities bilaterally, and normal strength in the right upper extremity. Normal pipe organ tuner and repairer strength bilaterally. Left upper extremity does demonstrate diminished strength compared to the right, for flexion and extension at the elbow, as well as movement of the shoulder. Patient also does have generalized restrictions of the shoulder for anterior elevation and does demonstrate a bit of a frozen shoulder in regards to movement. Both and state that this is chronic and not acute. 8.Skin: Warm, Dry. No rashes or lesions. 9.Neuro: Cranial nerves intact aside for minimal flattening of the left nasolabial fold, slight minimal deviation of the tongue to the left. Besides for the weakness in the left upper extremity and its decreased movement secondary to the chronic previous neurologic injuries no other acute deficits are appreciated at this time. 10.Psych: (AAO) x2. Patient does believe it is 2011 however aside for this she shows no other evidence of significant acute confusion. Course Vital Signs Vital signs: Vital Signs Temperature 36.3 C L 07/29/21 19:57 Pulse 79 07/29/21 19:57 Respiratory Rate 16 07/29/21 19:57 Blood Pressure 147/92 H 07/29/21 19:57 Pulse Oximetry 98 07/29/21 19:57 Temperature 36.3 C L 07/29/21 19:57 Temperature Source Temporal Artery Scan 07/29/21 19:57 Pulse 79 07/29/21 19:57 Respiratory Rate 16 07/29/21 19:57 Respiratory Effort Non-Labored 07/29/21 20:08 Respiratory Depth Normal 07/29/21 20:08 Respiratory Pattern Normal 07/29/21 20:08 Blood Pressure 147/92 H 07/29/21 19:57 Blood Pressure Position Sitting 07/29/21 19:57 Pulse Oximetry 98 07/29/21 19:57 Oxygen Delivery Method Room Air 07/29/21 19:57 Oxygen Flow Rate 0 07/29/21 19:57 Pain Level 0 07/29/21 19:57
[2021-07-29 20:28] LABS: Abs Immature Grans 0.02 10^3/uL (0.0-0.06); Absolute Basophil Count 0.02 10^3/uL (0.0-0.2); Absolute Eosinophil Count 0.04 10^3/uL (0.0-0.7); Absolute Lymphocyte Count 0.77 10^3/uL (1.2-3.4); Absolute Monocyte Count 0.74 10^3/uL (0.1-0.8); Absolute Neutrophil Count 5.24 10^3/uL (1.2-6.7); Basophils % 0.3; Eosinophils % 0.6; HCT 37.8 % (36.0-46.0); HGB 12.3 g/dL (11.2-15.7); Immature Grans % 0.3; Lymphocytes % 11.3; MCHC 32.5 % (32.0-36.0); MCV 89.2 fL (80-95); MPV 9.5 fL (8.0-11.0); Monocytes % 10.8; Neutrophils % 76.7; Nucleated RBC 0 %; Platelet Count 225 10^3/uL (130-400); RBC 4.24 10^6/uL (3.93-5.22); RDW 13.6 % (11.7-14.6); RDW-SD 44.8 fL
[2021-07-29 20:30] LABS: WBC 6.83 10^3/uL (4.4-10.8)
[2021-07-29] MEDS: Normal Saline 500 ML IV (20:33)
[2021-07-29 20:43] LABS: ALT 29 U/L (14-59); AST 28 U/L (15-37); Albumin 4.2 g/dL (3.4-5.0); Alkaline Phosphatase 41 U/L (46-116); Anion Gap 5.2 mmol/L (3-11); BUN 17 mg/dL (7-18); Bilirubin, Total 0.3 mg/dL (0.2-1.0); CO2 31.8 mmol/L (21.0-32.0); CREATININE 1.1 mg/dL (0.55-1.02); Calcium 9.9 mg/dL (8.5-10.1); Chloride 104 mmol/L (98-107); Estimated GFR 49.69 (mL/min/1.73m2); Glucose 126 mg/dL (74-106); Potassium 3.5 mmol/L (3.5-5.1); Sodium 141 mmol/L (136-145); Total Protein 7.3 g/dL (6.4-8.2)
[2021-07-29 20:44] LABS: Source Nasal/Nares
[2021-07-29] MEDS: levETIRAcetam 2,000 MG in Normal Saline 100 ML 400 MG IVPB (21:05)
--- NOTE | 2021-07-29 21:06 | HPE_ITS ---
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 She is recovering slowly but does have a history of seizures prior to that event and recurrent seizures just prior to admission off antiepileptics. She will be loaded with Keppra and started on oral Keppra daily. Neurology will be seeing her for follow-up. She otherwise appears to be stable except for possible UTI. She is cared for at home by her . If she stabilizes she can go home on Keppra with close monitoring. Imaging was unrevealing for any acute process. (2) UTI (urinary tract infection): Start date: 07/29/21 Status: Acute Assessment and plan: Patient's urine was positive for changes for possible UTI. She was restarted on oral antibiotic therapy and urine culture should be performed on admission urine. Qualifiers: Urinary tract infection type: acute cystitis Hematuria presence: [facility] hematuria Qualified Code(s): N30.00 - Acute cystitis without hematuria (3) Quadriplegia: Status: Chronic Assessment and plan: Patient appears to be slowly improving function at home being cared for by her . This appears to be a safe situation. History of Present Illness Narrative: 65 yo female with history autoimmune encephalopathy with resultant quadriparesis, dysarthria, dysphagia, and cognitive loss, relapsing-remitting MS which is now a questionable diagnosis with treatment withdrawn and seizure disorder who presents for seizure. Historically the patient developed partial seizures in 2006 and at that time she was started on multiple medications for suspected MS. Eventually when the patient came off of these medications she developed a quadriplegia and vented episode possibly an autoimmune encephalopathy. She had one episode of a total body tonic-clonic seizure at that time and was then started on zonisamide. She has been on that for the last few years, then over the last 2 years they have been slowly titrating down. In March they decided to stop the medication altogether and has had no complications since that time. With no other recent medication changes the patient had been doing well until today when she was getting out of the shower with her when she again developed a bit of a focal left-sided seizure which the states was similar to the seizure in 2006 when all this began. She was seen and assessed today, and had an unremarkable work-up for that seizure, CT scan/CTA of the head and neck was negative. She was discharged home with recommendations for close neurology follow-up. Unfortunately after getting home she had a repeat episode left-sided focal seizure, she was communicative during the seizure episode and then towards the end of it she became postictal and nonresponsive. EMS was again called and the patient was brought here for further assessment. Patient is back to her baseline upon arrival to the ED. Patient does admit to a very mild frontal headache, but no other complaints. No trauma. No new focal weakness. She does have residual quadriplegia with movement of all extremities but these are discoordinated with flexion contractures especially of the IP joints. Patient is total care at home with her . She is a full code. With teleneurology consultation in the ED it was advised the patient be loaded with Keppra and started on oral Keppra which was initiated. When I saw the patient she was comfortable with no further seizure activity and she was fully alert and awake. Review of Systems Narrative: 13 point review of systems otherwise unrevealing or stable. The patient is a very thin but does have fair nutrition. She denies any skin breakdown. Patient has no urinary complaints. 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 resolving quadriplegia. Residual frontal lobe damage. 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 x months, quadriplegia resolving, frontal lobe damage Insomnia Joint contracture of the upper arm (08/08/15) Leukocytopenia, unspecified secondary to Cytoxan Multiple sclerosis diagnosis questionable Nocturia more than twice per night (09/03/16) Quadriplegia Subdural hematoma (06/06/16) Urgency of urination (09/03/16) Surgical History section Colonoscopy - MAC (12/11/17) History of section Replacement of total knee joint LEFT S/P percutaneous endoscopic gastrostomy (PEG) tube placement Status post hernia repair Status post total knee replacement Family History Mother Diabetes Essential hypertension Neoplasm COLON Father Diabetes Essential hypertension Neoplasm SQUAMOUS STAGE 4 Stroke Brother Essential hypertension Stroke Brother Essential hypertension Stroke Brother Substance abuse Essential hypertension Brother Essential hypertension Social History Smoking/Tobacco Use Status: Former Tobacco Use Tobacco: How many years used: 12 Second Hand Exposure: Yes Smoking risk assessment performed?: Yes Alcohol Intake: never Drug use: Never Caregiver/Support person: Yes Household members: spouse Housing: house Communication Needs: None Do you need help understanding health information?: Rarely current occupation: Retired teacher. On disability. Pets and animals: Yes Sexually active: No Do you think of yourself as: straight/heterosexual Current gender identity: female What is your relationship status?: How often do you talk on the phone with friends or family?: three or more times per week How often do you get together with friends or relatives?: once per week Do you belong to any clubs or organized social groups?: no Panel score (0-1 are the most socially isolated patients): 2 What type of physical activity do you participate in: walking and other Details: stationary bike, arm pulleys, Duration: 45-60 minutes/day Anh/Buddhism: No preference Special anh needs: No Seatbelt use: always Helmet use: Yes Helmet use: always Drive intox or ride w/intox seasonal driver: No Do you feel safe at home: Yes Do you feel safe in your relationship?: Yes Meds Allergies and Home Medications Allergies Allergy/AdvReac Type Severity Reaction Status Date / Time azathioprine [From Imuran] AdvReac Severe hepatitis Verified 07/29/21 20:05 venlafaxine AdvReac elevated BP Verified 07/29/21 20:05 Home Medications Medication Instructions Recorded Confirmed Type docusate sodium 1 cap PO daily prn 02/27/13 07/29/21 History acetylcarnitine 500 mg PO DAILY 10/14/15 07/29/21 History calcium citrate-vitamin D3 1 ea PO BID 10/14/15 07/29/21 History [Calcium Citrate +] coenzyme Q10 [CoQ-10] 100 mg PO BID 10/14/15 07/29/21 History Contrace Minerals 10 drp PO DAILY 10/31/15 07/29/21 Clinic Vital Brain Powder 1 tsp PO DAILY 10/31/15 07/29/21 Clinic melatonin 10 mg PO prn qhs 03/05/16 07/29/21 History ibuprofen [Advil Liqui-Gel] 400 mg PO PRN PRN 04/24/16 07/29/21 History multivitamin [Daily Multi-Vitamin] 1 ea PO DAILY 07/02/17 07/29/21 History Ipriflavone 300 mg PO BID 01/28/18 07/29/21 History Strontium 1 cap PO DAILY 01/28/18 07/29/21 History cholecalciferol (vitamin D3) 25 4,000 unit PO DAILY #90 tab 11/13/18 07/29/21 History mcg (1,000 unit) chewable tablet levothyroxine 100 mcg tablet 100 mcg PO DAILY #90 tab-cap 07/26/20 07/29/21 Rx lorazepam 1 mg tablet 1 mg PO HS #90 tab 12/16/20 07/29/21 Rx sertraline 50 mg tablet 50 mg PO DAILY #90 tab-cap 06/16/21 07/29/21 Rx Exam Narrative Exam Narrative: General: Patient appears younger than stated age but very cachectic appearing with discordant speech and movement. She states she has recovered slowly but fairly well from her quadriplegic, and ventilation dependent encephalopathic state. She appears comfortable and has normal conversation with dysarthria. She is alert and oriented to person, place and time. She is in no acute distress. HEENT: Normocephalic, eyes with pupils equal and reactive to light symmetrically, extraocular movement intact and sclera anicteric. Oropharynx with good dentition with what appears to be bridging work over her incisors, moist mucosa. She does have dysarthric speech. Neck: Supple without JVD. Back: Extension posturing with no CVA tenderness. Breast: Exam deferred. Lungs: Clear to auscultation and percussion. Heart: Regular rate and rhythm with no murmurs or gallops appreciated. Abdomen: Scaphoid contour, soft and nontender to palpation with no palpable hepatosplenomegaly. Genitalia/rectal: Exam deferred. Extremities: Without clubbing, cyanosis or pitting edema. Muscle wasting diffusely with patient having discoordinated movement of extremities and face flexion contractures of his IP joints of the hand. Peripheral pulses intact. Skin: Normal color, warm and dry. Neuro: Dysarthric speech, decreased motor overall extremity but able to move against gravity with flexion contractures as mentioned. Cranial nerves II through XII appear to be grossly intact. No tremor. Psych: Normal affect and mood and affect slightly euphoric. No abnormal thought processes. Remote and recent memory intact. Results Imaging Imaging Studies: Exam: CT Angiography Head With Contrast, Arteriography Exam date and time: 07/29/2021 12:42 PM Age: 65 years old Clinical indication: Other: ? Seizure vs TIA TECHNIQUE: Imaging protocol: Computed tomography angiography of the head with contrast. Exam focused on the arteries. 3D rendering (Not supervised by radiologist): MIP and/or 3D reconstructed images were created by the technologist. Radiation optimization: All CT scans at this facility use at least one of these dose optimization techniques: automated exposure control; mA and/or kV adjustment per patient size (includes targeted exams where dose is matched to clinical indication); or iterative reconstruction. Contrast material: OMNIPAQUE 350; Contrast volume: 85 ml; Contrast route: INTRAVENOUS (IV); COMPARISON: MRI - BRAIN W/WO CONTRAST 08/12/2017 5:[address] 08/06/2017 FINDINGS: ANTERIOR CIRCULATION: Right internal carotid artery: Unremarkable. Intracranial segment is patent with no significant stenosis. No aneurysm. Right middle cerebral artery: Unremarkable. No occlusion or significant stenosis. No aneurysm. Right anterior cerebral artery: Unremarkable. No occlusion or significant stenosis. No aneurysm. Left internal carotid artery: Unremarkable. Intracranial segment is patent with no significant stenosis. No aneurysm. Left middle cerebral artery: Unremarkable. No occlusion or significant stenosis. No aneurysm. Left anterior cerebral artery: Unremarkable. No occlusion or significant stenosis. No aneurysm. POSTERIOR CIRCULATION: Right vertebral artery: Unremarkable. No occlusion or significant stenosis. No aneurysm. Left vertebral artery: Unremarkable. No occlusion or significant stenosis. No aneurysm. Basilar artery: Unremarkable. No occlusion or significant stenosis. No aneurysm. Right posterior cerebral artery: Unremarkable. No occlusion or significant stenosis. No aneurysm. Left posterior cerebral artery: Unremarkable. No occlusion or significant stenosis. No aneurysm. Brain: Stable diffuse parenchymal atrophy. Stable areas of very low-density in the periventricular and deep white matter of the cerebral hemispheres and magda, consistent with chronic small vessel ischemic changes. Cerebral ventricles: Stable bilateral ventricular enlargement. Bones/joints: Advanced degenerative arthritis in the temporomandibular joints. Soft tissues: Unremarkable. Paranasal sinuses: Retention cysts in the maxillary antra and right ethmoid sinus. IMPRESSION: 1. No acute intracranial abnormality 2. No stenosis nor occlusion in the visualized intracranial circulation 3. Stable diffuse parenchymal atrophy and chronic ischemic changes compared with 2017 PROCEDURE INFORMATION: Exam: CT Angiography Neck With Contrast Exam date and time: 07/29/2021 12:42 PM Age: 65 years old Clinical indication: Other: ? Seizure vs TIA TECHNIQUE: Imaging protocol: Computed tomography angiography of the neck with contrast. 3D rendering (Not supervised by radiologist): MIP and/or 3D reconstructed images were created by the technologist. Radiation optimization: All CT scans at this facility use at least one of these dose optimization techniques: automated exposure control; mA and/or kV adjustment per patient size (includes targeted exams where dose is matched to clinical indication); or iterative reconstruction. Contrast material: OMNIPAQUE 350; Contrast volume: 85 ml; Contrast route: INTRAVENOUS (IV); COMPARISON: MRI - BRAIN W/WO CONTRAST 08/12/2017 5:37 PM FINDINGS: Right common carotid artery: No stenosis. No dissection or occlusion. Right internal carotid artery: No stenosis of the extracranial segment. No dissection or occlusion. Right external carotid artery: No occlusion or stenosis of the origin. Left common carotid artery: No stenosis. No dissection or occlusion. Left internal carotid artery: No stenosis of the extracranial segment. No dissection or occlusion. Left external carotid artery: No occlusion or stenosis of the origin. Right vertebral artery: No stenosis. No dissection or occlusion. Left vertebral artery: No stenosis. No dissection or occlusion. Soft tissues: Normal. No significant soft tissue swelling. Bones/joints: Degenerative arthritis in the cervical facets, most marked on the left at C2-C3 and C3-C4. Narrowed C5-C6 interspace with endplate osteophyte formation. Degenerative arthritis between the anterior arch of C1 and the odontoid. IMPRESSION: No stenosis nor occlusion bilateral carotid arteries and vertebral arteries. REFERENCES: NASCET CRITERIA. The degree of internal carotid artery stenosis is based on NASCET criteria. Normal is no stenosis. Mild is less than 50% stenosis. Moderate is 50-69% stenosis. Severe is 70% to 99% stenosis. Total occlusion is no detectable patent lumen. Dictated and Authenticated by: Constance Gregg MD. Labs Result diagrams: 07/29/21 20:20 07/29/21 20:20 Labs: Laboratory Results - last 24 hr 07/29/21 07/29/21 07/29/21 20:20 20:20 20:31 WBC 6.83 D RBC 4.24 Hgb 12.3 Hct 37.8 MCV 89.2 MCH 29.0 MCHC 32.5 RDW 13.6 Plt Count 225 MPV 9.5 Immature Gran % 0.3 Neutrophils % 76.7 Lymphocytes % 11.3 Monocytes % 10.8 Eosinophils % 0.6 Basophils % 0.3 Nucleated RBC % 0 Absolute Neutrophils 5.24 Absolute Lymphocytes 0.77 L Absolute Monocytes 0.74 Absolute Eosinophils 0.04 Absolute Basophils 0.02 Sodium 141 Potassium 3.5 Chloride 104 Carbon Dioxide 31.8 Anion Gap 5.2 BUN 17 Creatinine 1.1 H Estimated GFR/1.73 m2 49.69 Glucose 126 H Calcium 9.9 Total Bilirubin 0.3 AST 28 ALT 29 Alkaline Phosphatase 41 L Total Protein 7.3 Albumin 4.2 COVID-19 Source Nasal/Nares Last Vital Signs Temp 36.3 C L 07/29/21 19:57 Pulse 70 07/29/21 20:46 Resp 22 07/29/21 20:50 BP 133/91 H 07/29/21 20:46 Pulse Ox 97 07/29/21 20:50
[2021-07-29 22:50] LABS: COVID-19 PCR Negative (Negative)
[2021-07-29 23:39] LABS: Bilirubin Negative (Negative); Blood Trace-intact (Negative); Clarity Cloudy (Clear); Glucose Negative (Negative); Ketones Negative (Negative); Leukocyte Esterase Negative (Negative); Nitrite Positive (Negative); Specific Gravity 1.015 (1.005-1.025); Urobilinogen 0.2 EU/dL (Up TO 0.2); pH 8.5 (5-8)
[2021-07-29 23:46] LABS: Bacteria Packed HPF (Negative); C & S Indicated? Yes; Casts Negative LPF (Negative); Crystals Moderate Amorphous HPF (Negative); Epithelial Cells Rare HPF (Negative); Mucus Negative (Negative)
[2021-07-29] MEDS: Melatonin 3 MG TAB 9 MG PO (23:50)
[2021-07-29] MEDS: LORazepam 1 MG TAB PO (23:50)
[2021-07-30 05:37] VITALS: BP 117/72; PULSE 73; RESP 18; TEMP 36.3; O2SAT 97
[2021-07-30] MEDS: Heparin 5,000 UNITS/ML VIAL 5000 UNITS SC ×2 (05:52→14:40)
[2021-07-30 07:36] LABS: Abs Immature Grans 0.02 10^3/uL (0.0-0.06); Absolute Basophil Count 0.02 10^3/uL (0.0-0.2); Absolute Eosinophil Count 0.07 10^3/uL (0.0-0.7); Absolute Lymphocyte Count 0.79 10^3/uL (1.2-3.4); Absolute Monocyte Count 0.68 10^3/uL (0.1-0.8); Absolute Neutrophil Count 4.16 10^3/uL (1.2-6.7); Basophils % 0.3; Eosinophils % 1.2; HCT 35.9 % (36.0-46.0); HGB 11.4 g/dL (11.2-15.7); Immature Grans % 0.3; Lymphocytes % 13.8; MCH 28.6 pg (27.0-33.0); MCHC 31.8 % (32.0-36.0); Monocytes % 11.8; Neutrophils % 72.6; Nucleated RBC 0 %; Platelet Count 215 10^3/uL (130-400); RBC 3.99 10^6/uL (3.93-5.22); RDW 13.7 % (11.7-14.6); RDW-SD 45.4 fL; WBC 5.74 10^3/uL (4.4-10.8)
[2021-07-30 07:50] LABS: Magnesium 1.6 mg/dL (1.8-2.4)
[2021-07-30 07:52] VITALS: BP 116/65; PULSE 71; RESP 17; TEMP 36.6; O2SAT 97
[2021-07-30 08:01] LABS: ALT 25 U/L (14-59); AST 18 U/L (15-37); Albumin 3.7 g/dL (3.4-5.0); Alkaline Phosphatase 39 U/L (46-116); Anion Gap 5.9 mmol/L (3-11); BUN 15 mg/dL (7-18); Bilirubin, Total 0.5 mg/dL (0.2-1.0); CO2 30.1 mmol/L (21.0-32.0); Calcium 9.3 mg/dL (8.5-10.1); Chloride 108 mmol/L (98-107); Estimated GFR 55.47 (mL/min/1.73m2); Glucose 83 mg/dL (74-106); Potassium 3.2 mmol/L (3.5-5.1); Sodium 144 mmol/L (136-145); TSH (W/Ref FT4) 1.56 uIU/mL (0.36-3.74); Total Protein 6.4 g/dL (6.4-8.2)
[2021-07-30] MEDS: Multivitamin TAB 1 TAB PO (08:02)
[2021-07-30] MEDS: levETIRAcetam 250 MG TAB 750 MG PO ×2 (08:02→19:48)
[2021-07-30] MEDS: Sertraline 50 MG TAB PO (08:03)
[2021-07-30] MEDS: Calcium 600mg/Vit D 200U TAB 1 TAB PO ×2 (08:03→19:49)
[2021-07-30] MEDS: Cholecalciferol (Vitamin D3) 1,000 UNIT TAB 4000 UNITS PO (08:03)
[2021-07-30] MEDS: Levothyroxine 100 MCG TAB PO (08:04)
--- NOTE | 2021-07-30 09:26 | PDOC.CMIN ---
- If Service Date Differs Date of service: 07/30/21 Time of Service: 09:26 Care Management Initial Assess REASON FOR HOSPITALIZATION:: Seizure PAST MEDICAL HISTORY/PAST SURGICAL HISTORY:: Medical History (Updated 07/30/21 @ 07:38 by Eron Samson). Acute cystitis. Age-related osteoporosis without current pathological fracture (11/05/17). Allergic rhinitis. Anxiety. Closed fracture of left hip with routine healing (06/06/16). pinning. Depressive disorder. Encephalopathy (03/06/17). 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 4 months ventilator [facility]. resolving quadriplegia. Residual frontal lobe damage. Encounter for annual physical exam. Focal epilepsy (04/15/18). Hypotension. Hypothyroidism. 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 ventilator x months, quadriplegia resolving, frontal lobe damage. Insomnia. Joint contracture of the upper arm (08/08/15). Leukocytopenia, unspecified. secondary to Cytoxan. Multiple sclerosis. diagnosis questionable. Nocturia more than twice per night (09/03/16). Quadriplegia. Subdural hematoma (06/06/16). Urgency of urination (09/03/16). Surgical History . section. Colonoscopy - MAC (12/11/17). History of section. Replacement of total knee joint. LEFT. S/P percutaneous endoscopic gastrostomy (PEG) tube placement. Status post hernia repair. Status post total knee replacement PREVIOUS FUNCTIONAL STATUS/SOCIAL/FAMILY SUPPORTS:: Tameka lives in [place], [place] with her Attila. and support dog Aamir. Tameka and Attila have one daughter who lives in [place]. She receives no community services and uses a walker for ambulation.She manages her own ADLs with her 's support. CURRENT FUNCTIONAL STATUS:: Tameka was sitting up in bed when CM met with her. She was agreeable to conversation and pleasant in interation. Her Attila was present at the time and actually answered most of the questions. Tameka would look to him and he would answer. They explained that Tameka has had debilitating conditions for quite some time and that their home is equipped with lifts and a power wheelchair for use as needed in addition to her walker. ADVANCE DIRECTIVES:: none on file Has patient been provided with info about the portal/API?: Yes Did the patient sign up for the portal?: Yes (previously) CODE STATUS:: Full Code INSURANCE COVERAGE / FINANCIAL ISSUES:: Medicare. BC BS CURRENT HOME/COMMUNITY SERVICES/EQUIPMENT:: walker, lifts, power wheelchair PRIMARY CARE PHYSICIAN:: Rom Atwood POTENTIAL DISCHARGE NEEDS:: Follow up with Neurology, PCP and plan of care PATIENT/FAMILY EDUCATION NEEDS:: Review of discharge instructions, limitations, medications, follow up plan, Ask Me Three TRANSPORTATION:: via private vehicle with PLAN:: Tameka will likely be discharged home with no new services. She will follow up with her PCP and with Dr. Cintron as well as her plan of care. Tameka will transport home with her . CM will continue to support Tameka and her discharge planning needs.
[2021-07-30 11:50] VITALS: BP 121/77; PULSE 65; RESP 17; TEMP 37.4; O2SAT 99
[2021-07-30] MEDS: MAGNESIUM SULFATE 4 GM/100 ML BAG IVPB (14:39)
[2021-07-30] MEDS: Potassium Chloride 20 MEQ TABCR 40 MEQ PO ×2 (14:45→18:49)
[2021-07-30 15:00] VITALS: PULSE 66
[2021-07-30 16:07] VITALS: BP 114/71; PULSE 64; RESP 19; TEMP 36.6; O2SAT 97
--- NOTE | 2021-07-30 16:20 | DSE_ITS ---
Date of service: 07/30/21 Time of Service: 16:20 DS: Diagnosis Discharge Diagnosis (1) Seizure: Start date: 07/30/21 Start time: 16:20 Status: Acute Asessment and Plan: she was recently on seizure medication until March then after titrating down medications they decided to stop all seizure meds, she has not had any complications since then until yesterday when she was getting out of the shower with her when she again developed a bit of a focal left-sided seizure which the states was similar to the seizure in 2006 when all this began, CT was negative and she was discharged home, she returned later for the same thing of repeat seizure activity. Neurology was contacted and it was recommended keppra be started. she was given loading dose in the ED and placed on 750 mg BID. She has not had a seizure since, therefore she feels well enough to go home. She will need follow up with Dr. Shilpa Boyd (2) UTI (urinary tract infection): Start date: 07/30/21 Start time: 16:34 Status: Acute Asessment and Plan: Patient's urine was positive nitrates and leuk est UTI. She was restarted on oral antibiotic therapy cipro however it not best option with keppra therefore she was switched to bactrim discussed with Dr. Schultz Discharge Plan Disposition Patient Disposition: HOME Condition: Stable Discharge Details Reason For Visit: Recurrent Siezures Admit Date/Time: 07/29/21 21:07 Admit Provider: Eron Samson Attending Provider: Eron Samson Primary Care Provider: Rom Atwood Hospital Course Hospital Course: 65 yo female with history autoimmune encephalopathy with resultant quadriparesis, dysarthria, dysphagia, and cognitive loss, relapsing-remitting MS which is now a questionable diagnosis with treatment withdrawn and seizure disorder who presents for seizure. Historically the patient developed partial seizures in 2006 and at that time she was started on multiple medications for suspected MS. Eventually when the patient came off of these medications she developed a quadriplegia and vented episode possibly an autoimmune encephalopathy. She had one episode of a total body tonic-clonic seizure at that time and was then started on zonisamide. She has been on that for the last few years, then over the last 2 years they have been slowly titrating down. In March they decided to stop the medication altogether and has had no complications since that time. With no other recent medication changes the patient had been doing well until today when she was getting out of the shower with her when she again developed a bit of a focal left-sided seizure which the states was similar to the seizure in 2006 when all this began. She was seen and assessed today, and had an unremarkable work-up for that seizure, CT scan/CTA of the head and neck was negative. She was discharged home with recommendations for close neurology follow-up. Unfortunately after getting home she had a repeat episode left-sided focal seizure, she was communicative during the seizure episode and then towards the end of it she became postictal and nonresponsive. EMS was again called and the patient was brought here for further assessment. Patient is back to her baseline upon arrival to the ED. Patient does admit to a very mild frontal headache, but no other complaints. No trauma. No new focal weakness. She does have residual quadriplegia with movement of all extremities but these are discoordinated with flexion contractures especially of the IP joints. Patient is total care at home with her . She is a full code. With teleneurology consultation in the ED it was advised the patient be loaded with Keppra and started on oral Keppra which was initiated. Today she is doing well she has not had any seizures she did need to have repletion of mag and potassium. She feels well enough to go home she will need follow up with Dr. Boyd, continue keppra and bactrim x 5 days, She denies CP, sOB, N/V/D. Repeat BMP on Saturday or saturday. Home Meds and New Rx's Prescriptions: New levetiracetam [Keppra] 250 mg Tablet 750 mg PO BID Qty: 60 RF: 0 sulfamethoxazole-trimethoprim 400-80 mg Tablet 1 tab PO BID Qty: 9 RF: 0 Continued docusate sodium 100 MG capsule 1 cap PO daily prn RF: 0 coenzyme Q10 [CoQ-10] 100 MG capsule 100 mg PO BID RF: 0 calcium citrate-vitamin D3 [Calcium Citrate +] 1 EACH tablet 1 ea PO BID RF: 0 acetylcarnitine 500 MG capsule 500 mg PO DAILY RF: 0 [employer] 10 drp PO DAILY RF: 0 VITAL BRAIN POWDER 1 tsp PO DAILY RF: 0 melatonin 10 MG tablet,ext release multiphase 10 mg PO prn qhs RF: 0 multivitamin [Daily Multi-Vitamin] 1 EACH tablet 1 ea PO DAILY RF: 0 ipriflavone 300 mg PO BID RF: 0 strontium 1 cap PO DAILY RF: 0 cholecalciferol (vitamin D3) 1,000 unit tablet,chewable 4,000 unit PO DAILY Qty: 90 RF: 3 levothyroxine 100 mcg tablet 100 mcg PO DAILY Qty: 90 RF: 4 lorazepam [Ativan] 1 mg tablet 1 mg PO HS Qty: 90 RF: 3 sertraline 50 mg tablet 50 mg PO DAILY Qty: 90 RF: 4 ibuprofen [Advil Liqui-Gel] 200 MG capsule 400 mg PO PRN PRNRF: 0 Discharge Instructions Instructions: Urinary Tract Infection in Women (DC), Generalized Tonic Clonic Seizures (DC) Additional Instructions: Follow up with Dr Boyd, We will call Saturday and make an appt for you and call you with a date and time' Eat yogurt daily Take keppra twice a day Repeat your lab work on or sat Stand Alone Forms: Nursing Discharge Form Referrals: Shilpa Boyd MD [ [facility] STAFF PHYSICIAN] - (Will call you with appointment and time) Activity:: Activity as Tolerated Equipment/Supplies:: No Equipment Needed Diet:: As Tolerated Discharge Orders Discharge Orders: Discharge Order (Routine); Ordered 07/30/21 Ordered By: Sabine Castañeda Other Ambulatory Orders: Basic Metabolic Panel (Routine) Location: None Selected Ordered By: Sabine Castañeda DS: Summary Time Spent with Patient providing and/or coordinating discharge services: Less than 30 minutes Status at Discharge Functional status at discharge: independent ambulation Overall status at discharge: patient is back to baseline Mental Status: mental status grossly normal Speech and Movement: speech and movement normal Mood: congruent mood Affect: normal affect Exam Narrative Exam Narrative: General: Patient appears younger than stated age but very cachectic appearing with discordant speech and movement. She states she has recovered slowly but fairly well from her quadriplegic, and ventilation dependent encephalopathic state. She appears comfortable and has normal conversation with dysarthria. She is alert and oriented to person, place and time. She is in no acute distress. HEENT: Normocephalic, eyes with pupils equal and reactive to light symmetrically, extraocular movement intact and sclera anicteric. Oropharynx with good dentition with what appears to be bridging work over her incisors, moist mucosa. She does have dysarthric speech. Neck: Supple without JVD. Back: Extension posturing with no CVA tenderness. Breast: Exam deferred. Lungs: Clear to auscultation and percussion. Heart: Regular rate and rhythm with no murmurs or gallops appreciated. Abdomen: Scaphoid contour, soft and nontender to palpation with no palpable he patosplenomegaly. Genitalia/rectal: Exam deferred. Extremities: Without clubbing, cyanosis or pitting edema. Muscle wasting diffusely with patient having discoordinated movement of extremities and face flexion contractures of his IP joints of the hand. Peripheral pulses intact. Skin: Normal color, warm and dry. Neuro: Dysarthric speech, decreased motor overall extremity but able to move against gravity with flexion contractures as mentioned. Cranial nerves II through XII appear to be grossly intact. No tremor. Psych: Normal affect and mood and affect slightly euphoric. No abnormal thought processes. Remote and recent memory intact. Psych Mental Status: mental status grossly normal Speech and Movement: speech and movement normal Mood: congruent mood Affect: normal affect DS: Data Vitals/I&O Vitals and I&O: Vital Signs Temperature 36.6 C 07/30/21 16:07 Temperature Source Temporal Artery Scan 07/30/21 16:07 Pulse 64 07/30/21 16:07 Pulse Rhythm Regular 07/30/21 10:23 Pulse 71 07/29/21 21:31 Respiratory Rate 19 07/30/21 16:07 Respiratory Effort Non-Labored 07/30/21 10:23 Respiratory Depth Normal 07/30/21 10:23 Respiratory Pattern Normal 07/30/21 10:23 Blood Pressure 114/71 07/30/21 16:07 Blood Pressure Mean 90 07/29/21 21:31 Blood Pressure Position Sitting 07/29/21 19:57 Pulse Oximetry 97 07/30/21 16:07 Oxygen Delivery Method Room Air 07/30/21 16:07 Oxygen Flow Rate 0 07/30/21 16:07 Pain Level 0 07/30/21 16:07 Comment 07/29/21 22:02 Intake & Output 07/29/21 07/30/21 07/30/21 23:59 11:59 23:59 Intake Total 620 / 620 690 / 690 Output Total 250 / 250 Balance 370 / 370 690 / 690 Weight 50.2 kg 51.8 kg Intake: IV 620 / 620 Oral 690 / 690 Output: Urine 250 / 250 Other: Urine Color Yellow Yellow Urine Appearance Cloudy Clear Urine Odor Strong Comment no hat in the toilet was unable to get urine amount Voiding Methods Bedside Commode Toilet Data Completed and Pending Completed studies during hospitalization [Text1]: FINDINGS: CT Head W/O and W contrast: Ventricles and Extra axial spaces: Stable ventricular dilatation, particularly the temporal horns. Hemorrhage: None. Cerebral parenchyma: Stable areas of low attenuation in the white matter. No acute infarct or mass. Midline shift: None. Brainstem/Cerebellum: Normal. Calvarium: Normal. Visualized Paranasal sinuses/Mastoids: Mucous retention cysts maxillary sinuses and right ethmoid sinus. Soft Tissues: Unremarkable. Enhancement: Normal. CTA Brain W: Internal Carotid Arteries: Petrous: Normal. Cavernous: Normal. Cerebral: Normal. Middle Cerebral Arteries: Right: No aneurysm, occlusion or significant stenosis. Left: No aneurysm, occlusion or significant stenosis. Anterior Cerebral Arteries: Right: No aneurysm, occlusion or significant stenosis. Left: No aneurysm, occlusion or significant stenosis. Posterior cerebral Arteries: Right: No aneurysm, occlusion or significant stenosis. Left: No aneurysm, occlusion or significant stenosis. Vertebral Arteries: Right: No aneurysm, occlusion or significant stenosis. Left: No aneurysm, occlusion or significant stenosis. Basilar Artery: No aneurysm, occlusion or significant stenosis. CTA Neck W: Common Carotid: Right: No aneurysm, occlusion or significant stenosis. Left: No aneurysm, occlusion or significant stenosis. External Carotid: Right: No aneurysm, occlusion or significant stenosis. Left: No aneurysm, occlusion or significant stenosis. Internal Carotid: Right: No aneurysm, occlusion or significant stenosis. Left: No aneurysm, occlusion or significant stenosis. Vertebral Artery: Right: No aneurysm, occlusion or significant stenosis. Left: No aneurysm, occlusion or significant stenosis. Lung Apices: Normal. Bones: Degenerative changes at C5-6 well as facet joints greatest at C 2 3 and C3-4. Soft Tissues: Normal. IMPRESSION: 1. Normal CTA examination of the [place]. 2. Stable ventricular dilatation and white matter changes of small vessel disease. No acute abnormality of the brain. 3. Normal CTA examination of the neck. Exam(s) PROCEDURE INFORMATION: Exam: CT Angiography Head With Contrast, Arteriography Exam date and time: 07/29/2021 12:42 PM Age: 65 years old Clinical indication: Other: ? Seizure vs TIA TECHNIQUE: Imaging protocol: Computed tomography angiography of the head with contrast. Exam focused on the arteries. 3D rendering (Not supervised by radiologist): MIP and/or 3D reconstructed images were created by the technologist. Radiation optimization: All CT scans at this facility use at least one of these dose optimization techniques: automated exposure control; mA and/or kV adjustment per patient size (includes targeted exams where dose is matched to clinical indication); or iterative reconstruction. Contrast material: OMNIPAQUE 350; Contrast volume: 85 ml; Contrast route: INTRAVENOUS (IV); COMPARISON: MRI - BRAIN W/WO CONTRAST 08/12/2017 5:[address] 08/06/2017 FINDINGS: ANTERIOR CIRCULATION: Right internal carotid artery: Unremarkable. Intracranial segment is patent with no significant stenosis. No aneurysm. Right middle cerebral artery: Unremarkable. No occlusion or significant stenosis. No aneurysm. Right anterior cerebral artery: Unremarkable. No occlusion or significant stenosis. No aneurysm. Left internal carotid artery: Unremarkable. Intracranial segment is patent with no significant stenosis. No aneurysm. Left middle cerebral artery: Unremarkable. No occlusion or significant stenosis. No aneurysm. Left anterior cerebral artery: Unremarkable. No occlusion or significant stenosis. No aneurysm. POSTERIOR CIRCULATION: Right vertebral artery: Unremarkable. No occlusion or significant stenosis. No aneurysm. Left vertebral artery: Unremarkable. No occlusion or significant stenosis. No aneurysm. Basilar artery: Unremarkable. No occlusion or significant stenosis. No aneurysm. Right posterior cerebral artery: Unremarkable. No occlusion or significant stenosis. No aneurysm. Left posterior cerebral artery: Unremarkable. No occlusion or significant stenosis. No aneurysm. Brain: Stable diffuse parenchymal atrophy. Stable areas of very low-density in the periventricular and deep white matter of the cerebral hemispheres and magda, consistent with chronic small vessel ischemic changes. Cerebral ventricles: Stable bilateral ventricular enlargement. Bones/joints: Advanced degenerative arthritis in the temporomandibular joints. Soft tissues: Unremarkable. Paranasal sinuses: Retention cysts in the maxillary antra and right ethmoid sinus. IMPRESSION: 1. No acute intracranial abnormality 2. No stenosis nor occlusion in the visualized intracranial circulation 3. Stable diffuse parenchymal atrophy and chronic ischemic changes compared with 2017 Labs on day of discharge: Labs from last 24 hours 07/30/21 07/30/21 07/30/21 06:58 06:58 06:58 WBC 5.74 RBC 3.99 Hgb 11.4 Hct 35.9 L MCV 90.0 MCH 28.6 MCHC 31.8 L RDW 13.7 Plt Count 215 MPV 10.0 Immature Gran % 0.3 Neutrophils % 72.6 Lymphocytes % 13.8 Monocytes % 11.8 Eosinophils % 1.2 Basophils % 0.3 Nucleated RBC % 0 Absolute Neutrophils 4.16 Absolute Lymphocytes 0.79 L Absolute Monocytes 0.68 Absolute Eosinophils 0.07 Absolute Basophils 0.02 Sodium 144 Potassium 3.2 L Chloride 108 H Carbon Dioxide 30.1 Anion Gap 5.9 BUN 15 Creatinine 1.0 Estimated GFR/1.73 m2 55.47 Glucose 83 Calcium 9.3 Magnesium 1.6 L Total Bilirubin 0.5 AST 18 ALT 25 Alkaline Phosphatase 39 L Total Protein 6.4 Albumin 3.7 TSH 1.56 Urine Color Urine Clarity Urine pH Ur Specific [place] Urine Protein Urine Ketones Urine Blood Urine Nitrite Urine Bilirubin Urine Urobilinogen Ur Leukocyte Esterase Urine RBC Urine WBC Ur Epithelial Cells Urine Crystals Urine Bacteria Urine Casts Urine Mucus Ur Culture Indicated? Urine Glucose COVID-19 Source SARS-CoV-2 (PCR) 07/29/21 07/29/21 07/29/21 22:55 22:18 20:31 WBC RBC Hgb Hct MCV MCH MCHC RDW Plt Count MPV Immature Gran % Neutrophils % Lymphocytes % Monocytes % Eosinophils % Basophils % Nucleated RBC % Absolute Neutrophils Absolute Lymphocytes Absolute Monocytes Absolute Eosinophils Absolute Basophils Sodium Potassium Chloride Carbon Dioxide Anion Gap BUN Creatinine Estimated GFR/1.73 m2 Glucose Calcium Magnesium Total Bilirubin AST ALT Alkaline Phosphatase Total Protein Albumin TSH Cancelled Urine Color Yellow Urine Clarity Cloudy Urine pH 8.5 H Ur Specific [place] 1.015 Urine Protein Negative Urine Ketones Negative Urine Blood Trace-intact H Urine Nitrite Positive H Urine Bilirubin Negative Urine Urobilinogen 0.2 Ur Leukocyte Esterase Negative Urine RBC 5-10 H Urine WBC 5-10 Ur Epithelial Cells Rare Urine Crystals Moderate Amorphous Urine Bacteria Packed Urine Casts Negative Urine Mucus Negative Ur Culture Indicated? Yes Urine Glucose Negative COVID-19 Source Nasal/Nares SARS-CoV-2 (PCR) Negative 07/29/21 07/29/21 20:20 20:20 WBC 6.83 D RBC 4.24 Hgb 12.3 Hct 37.8 MCV 89.2 MCH 29.0 MCHC 32.5 RDW 13.6 Plt Count 225 MPV 9.5 Immature Gran % 0.3 Neutrophils % 76.7 Lymphocytes % 11.3 Monocytes % 10.8 Eosinophils % 0.6 Basophils % 0.3 Nucleated RBC % 0 Absolute Neutrophils 5.24 Absolute Lymphocytes 0.77 L Absolute Monocytes 0.74 Absolute Eosinophils 0.04 Absolute Basophils 0.02 Sodium 141 Potassium 3.5 Chloride 104 Carbon Dioxide 31.8 Anion Gap 5.2 BUN 17 Creatinine 1.1 H Estimated GFR/1.73 m2 49.69 Glucose 126 H Calcium 9.9 Magnesium Total Bilirubin 0.3 AST 28 ALT 29 Alkaline Phosphatase 41 L Total Protein 7.3 Albumin 4.2 TSH Urine Color Urine Clarity Urine pH Ur Specific [place] Urine Protein Urine Ketones Urine Blood Urine Nitrite Urine Bilirubin Urine Urobilinogen Ur Leukocyte Esterase Urine RBC Urine WBC Ur Epithelial Cells Urine Crystals Urine Bacteria Urine Casts Urine Mucus Ur Culture Indicated? 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 resolving quadriplegia. Residual frontal lobe damage. 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 x months, quadriplegia resolving, frontal lobe damage Insomnia Joint contracture of the upper arm (08/08/15) Leukocytopenia, unspecified secondary to Cytoxan Multiple sclerosis diagnosis questionable Nocturia more than twice per night (09/03/16) Quadriplegia Subdural hematoma (06/06/16) Urgency of urination (09/03/16) Surgical History section Colonoscopy - MAC (12/11/17) History of section Replacement of total knee joint LEFT S/P percutaneous endoscopic gastrostomy (PEG) tube placement Status post hernia repair Status post total knee replacement Family History Mother Diabetes Essential hypertension Neoplasm COLON Father Diabetes Essential hypertension Neoplasm SQUAMOUS STAGE 4 Stroke Brother Essential hypertension Stroke Brother Essential hypertension Stroke Brother Substance abuse Essential hypertension Brother Essential hypertension Social History Smoking/Tobacco Use Status: Former Tobacco Use Tobacco: How many years used: 12 Second Hand Exposure: Yes Smoking risk assessment performed?: Yes Alcohol Intake: never Drug use: Never Caregiver/Support person: Yes Household members: spouse Housing: house Communication Needs: None Do you need help understanding health information?: Rarely current occupation: Retired teacher. On disability. Pets and animals: Yes Sexually active: No Do you think of yourself as: straight/heterosexual Current gender identity: female What is your relationship status?: How often do you talk on the phone with friends or family?: three or more times per week How often do you get together with friends or relatives?: once per week Do you belong to any clubs or organized social groups?: no Panel score (0-1 are the most socially isolated patients): 2 What type of physical activity do you participate in: walking and other Details: stationary bike, arm pulleys, Duration: 45-60 minutes/day Anh/Adventism: No preference Special anh needs: No Seatbelt use: always Helmet use: Yes Helmet use: always Drive intox or ride w/intox bicycle taxi driver: No Do you feel safe at home: Yes Do you feel safe in your relationship?: Yes
[2021-07-30 19:52] VITALS: PULSE 77
== END 2021-07-30 20:15 | disposition home or self-care (01) ==
LOC: ER 21:07 → MS 21:57
PROVIDERS: Admitting Provider Family Medicine; Emergency Provider Student in an Organized Health Care Education/Training Program; PCP Emergency Medicine; Visit Provider Family Medicine
DX: N30.00 Acute cystitis without hematuria (principal); G40.109 Localization-related (focal) (partial) symptomatic epilepsy and epileptic syndromes with simple partial seizures, not intractable, without status epilepticus; G82.50 Quadriplegia, unspecified; M81.0 Age-related osteoporosis without current pathological fracture; J30.9 Allergic rhinitis, unspecified; F41.9 Anxiety disorder, unspecified; F32.9 Major depressive disorder, single episode, unspecified; I95.9 Hypotension, unspecified; E03.9 Hypothyroidism, unspecified; G47.00 Insomnia, unspecified; R35.1 Nocturia
CPT/HCPCS: 36415; 70496; 70498; 80053; 87077; 87635; 93005; 96361; 96365; 99285; 81003; 81015; 83735; 84443; 84484; 85025; 87086; 87186; 99217; 99220; 99284; G0378; J1644; J1953; J3475; J3490

== ENCOUNTER 2021-08-04 02:53 | Outpatient (CLI) | payer MEDICARE, BC, SELFPAY ==
[2021-08-04 13:52] LABS: Anion Gap 8.1 mmol/L (3-11); BUN 21 mg/dL (7-18); CO2 27.9 mmol/L (21.0-32.0); CREATININE 1.4 mg/dL (0.55-1.02); Calcium 10.1 mg/dL (8.5-10.1); Chloride 102 mmol/L (98-107); Estimated GFR 37.62 (mL/min/1.73m2); Glucose 98 mg/dL (74-106); Potassium 4.5 mmol/L (3.5-5.1); Sodium 138 mmol/L (136-145)
== END 2021-08-04 02:54 | disposition home or self-care (01) ==
LOC: LBO 02:53
PROVIDERS: PCP Emergency Medicine; Visit Provider Nurse Practitioner Family
DX: E83.42 Hypomagnesemia (principal)
CPT/HCPCS: 36415; 80048

== ENCOUNTER → 2021-08-28 13:17 | Outpatient (BNVA) | payer MEDICARE, BC, SELFPAY | PROVIDERS: PCP Emergency Medicine; Referring Provider Emergency Medicine; Visit Provider Psychiatry & Neurology Neurology | DX: G35 Multiple sclerosis (principal); G40.109 Localization-related (focal) (partial) symptomatic epilepsy and epileptic syndromes with simple partial seizures, not intractable, without status epilepticus; G93.40 Encephalopathy, unspecified; G47.00 Insomnia, unspecified; R35.1 Nocturia | CPT/HCPCS: 99214 ==

== ENCOUNTER 2021-10-23 02:33 | Outpatient (CLI) | payer MEDICARE, BC, SELFPAY ==
--- OUTSIDE RECORDS SUMMARY | 2021-10-23 02:35 | XMS_ITS ---
:1955 Author Care Team Providers Name Role Phone NICO CABRERA Primary Care Provider [phone] Allergies Code Code System Name Reaction Severity Status Onset NKDA ? Notes: Allergic to a BP med Medications Name Status Start Date Stop Date ? ? levothyroxine Active ? Not available lorazepam Active ? Not available Zoloft Active ? Not available zonisamide Active ? Not available Problems Name Status Onset Date Source ? Hypothyroidism Active 05/12/2019 ? Anxiety Unknown 05/12/2019 ? Depressive Disorder Active 05/12/2019 ? Seizure Disorder Active 05/12/2019 ? Sleep Disorder Active 05/12/2019 ? Procedures Date Name Performed by ? ? Change of Windpipe Airway Information no t available Notes: Tracheotomy ? Procedure on Liver Information not avai lable Notes: Biopsy ? Delivery Information not avai lable ? Orthopedic Surgery Information not avai lable Notes: Left Knee, Right Hand ? Procedure on Brain Information not avai lable Notes: Biopsy 05/12/2019 XR, Hand, 3 or More View In-Office Order Internal Use Only DO Not Attach Compendium DO Not Attach Compendium Do Not Delete/merge [id number] Results Lab Results Date Name Specimen Result Interpretation Description Value Range Status Address ? ? XR, Hand, 3 ? No observation ? ? ? In-Office Order: or More recorded. Clerk Carrier al Use Only View DO Not Att ach Compendium DO Not Attach Compendium , Do Not Delete /merge Past Encounters None recorded. Social History Tobacco Smoking Status Never Smoker Vaccine List None recorded. Plan of Care Reminders Provider Appointments None ? ? recorded. Lab None ? ? recorded. Referral None ? ? recorded. Procedures None ? ? recorded. Surgeries None ? ? recorded. Imaging None ? ? recorded. Vitals Height Weight BMI Blood Pressure 66.5 in 126 lbs 16 oz 20.2 kg/m2 143/91 mm[Hg]
[2021-10-23 15:13] LABS: HCT 38.8 % (36.0-46.0); HGB 12.3 g/dL (11.2-15.7); MCH 28.7 pg (27.0-33.0); MCHC 31.7 % (32.0-36.0); MCV 90.7 fL (80-95); MPV 9.3 fL (8.0-11.0); Platelet Count 246 10^3/uL (130-400); RBC 4.28 10^6/uL (3.93-5.22); RDW 14.4 % (11.7-14.6); WBC 4.24 10^3/uL (4.4-10.8)
[2021-10-23 16:09] LABS: Anion Gap 4.8 mmol/L (3-11); BUN 19 mg/dL (7-18); CO2 34.2 mmol/L (21.0-32.0); Calcium 10.1 mg/dL (8.5-10.1); Chloride 103 mmol/L (98-107); Glucose 80 mg/dL (74-106); Potassium 3.9 mmol/L (3.5-5.1); Sodium 142 mmol/L (136-145); TSH 1.47 uIU/mL (0.36-3.74)
== END 2021-10-23 02:34 | disposition home or self-care (01) ==
LOC: LBO 02:33
PROVIDERS: PCP Emergency Medicine; Visit Provider Emergency Medicine
DX: I10 Essential (primary) hypertension; E03.9 Hypothyroidism, unspecified; N30.00 Acute cystitis without hematuria
CPT/HCPCS: 36415; 80048; 85027; 84443

== ENCOUNTER → 2022-04-09 13:01 | Outpatient (BNVA) | payer MEDICARE, SELFPAY | PROVIDERS: PCP Family Medicine; Referring Provider Family Medicine; Visit Provider Psychiatry & Neurology Neurology | DX: G93.40 Encephalopathy, unspecified (principal); G35 Multiple sclerosis; G40.109 Localization-related (focal) (partial) symptomatic epilepsy and epileptic syndromes with simple partial seizures, not intractable, without status epilepticus; J33.9 Nasal polyp, unspecified; G47.00 Insomnia, unspecified; R35.1 Nocturia | CPT/HCPCS: 99214 ==

== ENCOUNTER 2022-09-26 03:43 | Outpatient (CLI) | payer MEDICARE, SELFPAY ==
[2022-09-26 14:29] LABS: HCT 36.8 % (36.0-46.0); MCH 29.6 pg (27.0-33.0); MCHC 32.6 % (32.0-36.0); MCV 91 fL (80-95); MPV 9.5 fL (8.0-11.0); Platelet Count 212 10^3/uL (130-400); RBC 4.06 10^6/uL (3.93-5.22); RDW 13.9 % (11.7-14.6); RDW-SD 46.7 fL; WBC 6.37 10^3/uL (4.4-10.8)
[2022-09-26 15:38] LABS: ALT 24 U/L (14-59); AST 23 U/L (15-37); Albumin 4.1 g/dL (3.4-5.0); Alkaline Phosphatase 48 U/L (46-116); Anion Gap 6.5 mmol/L (3-11); BUN 25 mg/dL (7-18); Bilirubin, Total 0.5 mg/dL (0.2-1.0); CO2 30.5 mmol/L (21.0-32.0); CREATININE 1.2 mg/dL (0.55-1.02); Calcium 10.2 mg/dL (8.5-10.1); Chloride 101 mmol/L (98-107); Estimated GFR 49.61 (mL/min/1.73m2); Glucose 95 mg/dL (74-106); Potassium 3.5 mmol/L (3.5-5.1); Sodium 138 mmol/L (136-145); TSH (W/Ref FT4) 1.55 uIU/mL (0.36-3.74); Total Protein 7.4 g/dL (6.4-8.2)
== END 2022-09-26 03:44 | disposition home or self-care (01) ==
PROVIDERS: PCP Family Medicine; Visit Provider Family Medicine
DX: G35 Multiple sclerosis (principal); K21.9 Gastro-esophageal reflux disease without esophagitis; E03.9 Hypothyroidism, unspecified; G93.40 Encephalopathy, unspecified
CPT/HCPCS: 36415; 80053; 85027; 84443

== ENCOUNTER → 2022-10-08 13:16 | Outpatient (BNVA) | payer MEDICARE, SELFPAY | PROVIDERS: PCP Family Medicine; Referring Provider Family Medicine; Visit Provider Psychiatry & Neurology Neurology | DX: G93.40 Encephalopathy, unspecified (principal); G40.109 Localization-related (focal) (partial) symptomatic epilepsy and epileptic syndromes with simple partial seizures, not intractable, without status epilepticus; G35 Multiple sclerosis; G47.00 Insomnia, unspecified; R35.1 Nocturia | CPT/HCPCS: 99214 ==

== ENCOUNTER → 2023-04-16 12:46 | Outpatient (BNVA) | payer MEDICARE, SELFPAY | PROVIDERS: PCP Family Medicine; Referring Provider Family Medicine; Visit Provider Psychiatry & Neurology Neurology | DX: G35 Multiple sclerosis (principal); G40.109 Localization-related (focal) (partial) symptomatic epilepsy and epileptic syndromes with simple partial seizures, not intractable, without status epilepticus; G04.81 Other encephalitis and encephalomyelitis; G47.00 Insomnia, unspecified; R35.1 Nocturia; R13.10 Dysphagia, unspecified | CPT/HCPCS: 99214 ==

== ENCOUNTER 2023-06-17 02:49 | Outpatient (CLI) | payer MEDICARE, SELFPAY ==
--- NOTE | 2023-06-17 08:13 | DI.RAD_ITS ---
Exam(s) RF MODIFIED SPEECH BA SWALLOW TECHNIQUE: Modified barium swallow was performed in conjunction with speech pathology. CONTRAST MATERIAL: Oral barium contrast was administered. COMPARISON: No exams were available for comparison FINDINGS: Note that this is not a dedicated esophagram, distal esophagus not evaluated. There is no evidence of aspiration of thick or thin liquids, barium coated cracker, barium pudding or barium tablet. There was some penetration of liquid seen during the examination. Speech pathology report to follow. IMPRESSION: No evidence of aspiration. RADIATION DOSE DELIVERED: shweta Sawyer=6.43 mGy
[2023-06-17] MEDS: Barium Sulfate 81% w/w for Oral Suspension 148 GM BTL PO (09:41)
[2023-06-17] MEDS: Barium Sulfate Oral Paste 40% W/V 230 ML TUBE PO (09:42)
[2023-06-17] MEDS: Barium Sulfate 700 MG TAB PO (09:43)
[2023-06-17] MEDS: Barium Sulfate 40% W/V 240 ML BTL PO (09:43)
--- NOTE | 2023-06-17 10:48 | ST.MBS_ITS ---
Date of Service Date of service: 06/17/23 Time of Service: 10:48 Modified Barium Swallow Study Findings: Video fluoroscopic Swallowing Evaluation (VFSE) / Modified Barium Swallow Study (MBSS) Speech Language Pathology Report Patient referred for VFSE/MBSS from Dr. Irvin (Neurology) given dysphagia and dry throat with persistent thick phlegm. HPI & Patient report of function: Ms. 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 She is followed by neurology and has made significant recovery since initial onset. She has been followed by ENT for increased phlegm and post- nasal drip, and recently with increasing dysphagia and possible impact of xerostomia. During acute hospitalization at [facility] she had a tracheostomy and was on ventilator eventually weaned and regained speech. She also had PEG tube for several months. She did do MBSS during acute phases but has not had repeated exam since initial hospitalization.?She was recently seen by PAPER CONTROL CLERK for clinical swallow evaluation and referred for further MBSS for suspected oral-pharyngeal dysphagia with possible GERD complication. PMHx: Medical History All Active Problems?(Updated 04/16/23 @ 13:24 by Shilpa Irvin MD) Dysphagia (Acute) GERD (gastroesophageal reflux disease) (Chronic) Postnasal drip (Acute) Hypomagnesemia (Acute) UTI (urinary tract infection) (Acute) Quadriplegia (Chronic) Seizure (Acute) Encounter for annual physical exam (Acute) Hypotension (Acute) Insomnia (Acute) History of section (Acute) Status post hernia repair (Acute) Status post total knee replacement (Acute) Immunosuppressive drug toxicity (Acute 10/14/15) ventilator x months, quadriplegia resolving, frontal lobe damage Urgency of urination (Acute 09/03/16) Subdural hematoma (Acute 06/06/16) Nocturia more than twice per night (Acute 09/03/16) Nasal polyp (Acute) Multiple sclerosis (Acute) diagnosis questionable Menopausal hot flushes (Acute 08/15/17) occasional, short lasting Leukocytopenia, unspecified (Acute) secondary to Cytoxan Joint contracture of the upper arm (Acute 08/08/15) Hypothyroidism (Acute) Hormone replacement therapy (postmenopausal) (Acute 05/27/12) 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 resolving quadriplegia.? Residual frontal lobe damage. Depressive disorder (Acute) Closed fracture of left hip with routine healing (Acute 06/06/16) pinning Anxiety (Acute) Allergic rhinitis (Acute) Age-related osteoporosis without current pathological fracture (Acute 11/05/17) Acute cystitis (Acute) Surgical History? section Colonoscopy - MAC (12/11/17) Replacement of total knee joint LEFTS/P percutaneous endoscopic gastrostomy (PEG) tube placement IMPRESSIONS: Swallow safety is impaired; swallow efficiency is impaired. Mild-moderate chronic oropharyngeal dysphagia characterized primarily by diffuse weakness resulting in delayed initiation, reduced oral, laryngeal, pharyngeal motility, and resulting in oral & residue (vallecular>pyriform). There was mild flash penetration of thin liquids during the swallow that did not contact the vocal folds and was resolved at swallow completion. Barium tablet took several attempts with liquid wash to clear from oral cavity, but did clear the pharynx without difficulty. While slow to transit the esophagus, it did empty into the stomach without need for further strategies. See objective below for additional description of swallow characteristics & parameters. Patient appears to be at overall mild risk for potential aspiration PNA and/or pulmonary compromise and low risk for malnutrition, low risk for dehydration. Diet modification is indicated; non-oral nutrition is indicated. Swallow prognosis is good-fair given: Positive prognostic factors: Severity, Family/caregiver support, Negative prognostic factors: Time since onset, Cognitive status, and pending patient/caregiver training in risk management as outlined, including use of trialed compensatory strategies. Patient appears to be a good candidate for behavioral swallow rehabilitation. RECOMMENDATIONS: Diet Texture Recommendation:? IDDSI LEVEL SOLIDS 7-Regular/Easy to Chew Solids 6-Soft & Bite-Sized Solids LIQUIDS 0-Thin Liquids Please see further details at?www.iddsi.org [email or web address].iddsi.org/ MEDICATIONS Whole with 4-Puree Diet texture modification is per patient's preference; please adjust diet textures at patient's discretion & collaboration with care team. Do not alter medications (e.g., cut)? without advice from your MD or pharmacist. Risk Management Strategies:? Behavioral reflux precautions, including upright position during + 90 mins after meals. Small bites, approx [id number] Small sips, approx 10 mL Alternate solids/liquids as able Multiple swallows per bolus to encourage clearance of pharyngeal stasis/residue Control risk factors for aspiration pneumonia via (a) thorough oral hygiene & (b) maintaining physical mobility as tolerated PLAN: Therapy: Recommend subsequent outpatient session with PAPER CONTROL CLERK to review results of today's exam and develop treatment plan as appropriate. Will consider reflux counseling, strategy instruction, and oral-pharyngeal exercises pending patient goals of care. GOALS: Patient will tolerate safest/least restrictive diet without s/sx aspiration. Patient/caregiver will be independent with aspiration precautions, diet modifications, and safe swallowing strategies. Patient/caregiver will verbalize/demonstrate understanding of education r/t anatomy/physiology of normal vs disordered swallowing mechanism, overt s/sx to monitor for re: potential aspiration of food liquids, recommendations for improved oral care, relationship between respiratory function changes and deglutition, rationale for risk management strategies. ----- OBJECTIVE Videofluoroscopic Swallow Evaluation (VFSE/MBSS) was conducted in the lateral[ and [id number]] projection by Speech-Language Pathologist, in collaboration with Radiologist, to evaluate oropharyngeal swallow function. Anatomic view under fluoroscopy: Possible mild cricopharyngeal hypertrophy which did not appear to hinder flow of bolus through the upper esophageal segment. PO Barium Contrast Trials Oral barium water-soluble contrast was administered as follows: IDDSI Level 0 Varibar thin liquid (40% w/v) IDDSI Level 2 Varibar nectar thick/mildly thick liquid (40% w/v) IDDSI Level 4 Varibar pudding/pureed/extremely thick (40% w/v) IDDSI Level 7 Regular Solid: 1/2 lenin cracker coated in 3 mL Varibar pudding 13 mm barium tablet taken with Thin Liquids. MBSImP Component Scores: COMPONENT Scale SCORE 1 Lip closure (0-4) 1 Resulted in interlabial escape, without progression to anterior lip 2 Hold Position (0-3) 0 Maintained a cohesive bolus between tongue to palatal seal 3 Bolus Preparation (0-4) 1 Resulted in slow prolonged chewing/mashing with complete re-collection 4 Bolus Transport (0-4) 3 Was with repetitive/disorganized motion of the tongu e 5 Oral Residue (0-4) 2 Was a collection on oral structures 6 Swallow Initiation (0-4) 3 Occurred when the bolus head was in the pyriform sinuses 7 Soft Palate Elevation (0-4) 0 Resulted in no bolus between soft palate and t he pharyngeal wall 8 Laryngeal Elevation (0-3) 1 Was decreased with partial superior movement of thyroid cartilage/partial approximation of arytenoids to epiglottic petiole 9 Anterior Hyoid Motion (0-2) 1 Demonstrated partial anterior movement 10 Epiglottic Movement (0-2) 1 Resulted in partial inversion 11 Laryngeal Closure (0-2) 1 Was incomplete with narrow a column of air/contra st in laryngeal vestibule 12 Pharyngeal Stripping Wave (0-2) 1 Was present, but diminished 13 Pharyngeal Contraction (0-3) 2 Resulted in unilateral Bulging 14 PES Opening (0-3) 0 Was completely distended and complete duration with no obstruction of flow 15 Tongue Base Retraction (0-4) 0 Allowed no contrast between the tongue base and posterior pharyngeal wall 16 Pharyngeal Residue (0-4) 2 Was a collection of residue within or on pharyngeal structures 17 Esophageal Clearance (0-4) 1 Resulted in esophageal retention Results: COMPONENT Scale SCORE 1 Oral Score (0-18) 9 2 Pharyngeal Score (0-29) 9 3 Esophageal Score (0-4) 1 Dysphagia Outcome and Severity Scale: COMPONENT Scale SCORE 1 LEVEL (1-7) 5 Full PO: Modified Diet and/or [place] - Mild dysphagia; Distant supervision may need 1 diet consistency restricted Penetration-Aspiration Scale: COMPONENT Scale SCORE 1 Thin liquid (1-8) 2 Contrast entered the airway, remained above the vocal folds, and was ejected from the airway. 2 [place] thick (1-8) 1 Contrast did not enter the airway 3 Honey thick (1-8) NA 4 Pudding thick (1-8) 1 Contrast did not enter the airway 5 Cookie (1-8) 1 Contrast did not enter the airway Observations not captured in quantitative data: Trialed Compensatory Strategies & Outcome: Maneuvers Successful (+) Unsuccessful (-) Postures Successful (+) Unsuccessful (-) 3 second Preparatory Set? ? Chin Tuck Posture? ? Cough? l ? Posterior Head tilt? Reflexive? Cued? Throat Clear? ? Head Tilt to? Reflexive? Left? Cued? Right? ? Saliva swallow? ? Head Turn/Rotate to? ? Supraglottic Swallow? Left? ? Super-supraglottic Swallow? Right? ? Bolus Modifications Successful (+) Unsuccessful (-) Delivery/Alternating Consistencies ? Follow with Liquid Wash ? Follow with Solid Bolus? Delivery/Via Straw? ? Reduced Volume? ? Reduced Rate of Intake? ? Increased Viscosity? ? Other:?? ? Thank you for allowing us to take part in this patient's care. Please feel free to contact the [facility] Speech Language Pathology Department with any questions/concerns. Coding CPT Codes MOTION FLUOROSCOPY/SWALLOW - [id number] ([id number])
== END 2023-06-17 03:09 ==
LOC: DI 02:49
PROVIDERS: PCP Family Medicine; Visit Provider Psychiatry & Neurology Neurology
DX: R13.12 Dysphagia, oropharyngeal phase (principal)
CPT/HCPCS: 92611; 74221

== ENCOUNTER 2023-06-26 03:30 | Outpatient (CLI) | payer MEDICARE, SELFPAY ==
[2023-06-26 14:52] LABS: ALT 23 U/L (14-59); AST 19 U/L (15-37); Albumin 3.9 g/dL (3.4-5.0); Alkaline Phosphatase 40 U/L (46-116); Anion Gap 6.1 mmol/L (3-11); BUN 16 mg/dL (7-18); Bilirubin, Total 0.5 mg/dL (0.2-1.0); CO2 33.9 mmol/L (21.0-32.0); CREATININE 1.2 mg/dL (0.55-1.02); Calcium 11.3 mg/dL (8.5-10.1); Calculated LDL 146 mg/dL (<100); Chloride 101 mmol/L (98-107); Cholesterol 254 mg/dL (<200); Estimated GFR 49.31 (mL/min/1.73m2); Glucose 110 mg/dL (74-106); HDL Cholesterol 88 mg/dL (40-60); Potassium 3.9 mmol/L (3.5-5.1); Sodium 141 mmol/L (136-145); Total Protein 6.9 g/dL (6.4-8.2); Triglyceride 102 mg/dL (<150)
[2023-06-26 15:15] LABS: Vitamin D 25 Total 142.3 ng/mL (30-100)
== END 2023-06-26 03:31 | disposition home or self-care (01) ==
PROVIDERS: PCP Family Medicine; Visit Provider Family Medicine
DX: E03.9 Hypothyroidism, unspecified; Z00.00 Encounter for general adult medical examination without abnormal findings; Z79.890 Hormone replacement therapy
CPT/HCPCS: 36415; 80053; 80061; 82306; 84443

== ENCOUNTER 2023-07-10 02:57 | Outpatient (CLI) | payer MEDICARE, SELFPAY ==
[2023-07-10 14:14] LABS: ALT 21 U/L (14-59); AST 21 U/L (15-37); Albumin 4.1 g/dL (3.4-5.0); Alkaline Phosphatase 43 U/L (46-116); Anion Gap 7.8 mmol/L (3-11); BUN 13 mg/dL (7-18); Bilirubin, Total 0.5 mg/dL (0.2-1.0); CO2 29.2 mmol/L (21.0-32.0); Calcium 9.9 mg/dL (8.5-10.1); Chloride 105 mmol/L (98-107); Estimated GFR 61.36 (mL/min/1.73m2); Glucose 97 mg/dL (74-106); Potassium 3.6 mmol/L (3.5-5.1); Sodium 142 mmol/L (136-145); Total Protein 7.1 g/dL (6.4-8.2)
== END 2023-07-10 02:58 | disposition home or self-care (01) ==
LOC: LBO 02:58
PROVIDERS: PCP Family Medicine; Visit Provider Family Medicine
DX: E55.9 Vitamin D deficiency, unspecified (principal); E03.9 Hypothyroidism, unspecified; N28.9 Disorder of kidney and ureter, unspecified
CPT/HCPCS: 36415; 80053; 82306

== ENCOUNTER → 2023-10-21 13:31 | Outpatient (BNVA) | payer MEDICARE, SELFPAY | PROVIDERS: PCP Family Medicine; Visit Provider Psychiatry & Neurology Neurology | DX: G04.81 Other encephalitis and encephalomyelitis (principal); G35 Multiple sclerosis; G40.109 Localization-related (focal) (partial) symptomatic epilepsy and epileptic syndromes with simple partial seizures, not intractable, without status epilepticus; G47.00 Insomnia, unspecified; R35.1 Nocturia; G25.81 Restless legs syndrome; R13.10 Dysphagia, unspecified | CPT/HCPCS: 99214 ==

== ENCOUNTER 2023-10-24 01:54 | Outpatient (CLI) | payer MEDICARE, SELFPAY ==
[2023-10-24 14:14] LABS: Abs Immature Grans 0.02 10^3/uL (0.0-0.06); Absolute Basophil Count 0.04 10^3/uL (0.0-0.2); Absolute Lymphocyte Count 0.91 10^3/uL (1.2-3.4); Absolute Neutrophil Count 4.97 10^3/uL (1.2-6.7); Basophils % 0.6; Eosinophils % 1.5; HCT 39.4 % (36.0-46.0); HGB 12.6 g/dL (11.2-15.7); Immature Grans % 0.3; Lymphocytes % 13.5; MCH 28.3 pg (27.0-33.0); MCV 88 fL (80-95); MPV 9.6 fL (8.0-11.0); Monocytes % 10.4; Neutrophils % 73.7; Platelet Count 240 10^3/uL (130-400); RBC 4.46 10^6/uL (3.93-5.22); RDW 13.8 % (11.7-14.6); RDW-SD 44.6 fL; WBC 6.74 10^3/uL (4.4-10.8)
[2023-10-24 14:56] LABS: Ferritin 21 ng/mL (8-252)
== END 2023-10-24 01:55 | disposition home or self-care (01) ==
LOC: LBO 01:54
PROVIDERS: PCP Family Medicine; Visit Provider Psychiatry & Neurology Neurology
DX: E61.1 Iron deficiency (principal); G93.40 Encephalopathy, unspecified
CPT/HCPCS: 36415; 82728; 85025

== ENCOUNTER 2024-01-10 02:35 | Outpatient (CLI) | payer MEDICARE, SELFPAY ==
[2024-01-10 15:48] LABS: ALT 18 U/L (14-59); AST 15 U/L (15-37); Albumin 4.3 g/dL (3.4-5.0); Alkaline Phosphatase 80 U/L (46-116); BUN 19 mg/dL (7-18); Bilirubin, Total 0.6 mg/dL (0.2-1.0); Calcium 9.7 mg/dL (8.5-10.1); Chloride 102 mmol/L (98-107); Estimated GFR 60.98 (mL/min/1.73m2); Glucose 93 mg/dL (74-106); PHOSPHORUS 4.3 mg/dL (2.6-4.7); Potassium 3.5 mmol/L (3.5-5.1); Sodium 141 mmol/L (136-145); TSH (W/Ref FT4) 0.76 uIU/mL (0.36-3.74); Total Protein 7.7 g/dL (6.4-8.2)
[2024-01-10 17:12] LABS: Vitamin D 25 Total 96.6 ng/mL (30-100)
[2024-01-10 22:21] LABS: Parathyroid Hormone,Intact 56 pg/mL (19-88)
== END 2024-01-10 02:36 | disposition home or self-care (01) ==
PROVIDERS: PCP Family Medicine; Visit Provider Family Medicine
DX: N28.9 Disorder of kidney and ureter, unspecified (principal); E83.52 Hypercalcemia; T45.2X1A Poisoning by vitamins, accidental (unintentional), initial encounter; R73.9 Hyperglycemia, unspecified; E03.9 Hypothyroidism, unspecified; M81.0 Age-related osteoporosis without current pathological fracture
CPT/HCPCS: 36415; 80053; 82306; 83970; 84100; 84443

== ENCOUNTER → 2024-01-23 02:38 | Outpatient (CLI) | payer MEDICARE, SELFPAY ==
--- NOTE | 2024-01-23 08:45 | DI.DEXA_ITS ---
Exam(s) XR DEXA BONE DENSITY W/WO GABRIEL EXAM: XR DEXA BONE DENSITY W/WO GABRIEL CLINICAL HISTORY: osteoporosis, postmenopausal status, Z78.0 TECHNIQUE: COMPARISON: DX DEXA BONE DENSITY WITH GABRIEL from 09/18/2017 FINDINGS: Lateral Spine Image: Unremarkable. No compression deformities identified. Right hip: Total T-Score: -3.8. This compares to -3.2 on the prior examination. Total Z-Score: -2.3 T- and Z-scores: Findings are consistent with osteoporosis. Lumbar Spine: Total T-Score: -3.5. This compares to -3.9 on the prior examination. Total Z-Score: -1.4 T- and Z-scores: Findings are consistent with osteoporosis. IMPRESSION: Osteoporosis in the right hip and lumbar spine.
== END ==
PROVIDERS: PCP Family Medicine; Visit Provider Family Medicine
DX: Z78.0 Asymptomatic menopausal state (principal); Z13.820 Encounter for screening for osteoporosis; M81.0 Age-related osteoporosis without current pathological fracture
CPT/HCPCS: 77080

== ENCOUNTER → 2024-04-21 12:20 | Outpatient (BNVA) | payer MEDICARE, SELFPAY | PROVIDERS: PCP Family Medicine; Referring Provider Family Medicine; Visit Provider Psychiatry & Neurology Neurology | DX: G35 Multiple sclerosis (principal); G40.109 Localization-related (focal) (partial) symptomatic epilepsy and epileptic syndromes with simple partial seizures, not intractable, without status epilepticus; G25.81 Restless legs syndrome; G47.00 Insomnia, unspecified; R35.1 Nocturia; R13.10 Dysphagia, unspecified | CPT/HCPCS: 99214 ==

== ENCOUNTER 2024-06-25 03:52 | Outpatient (CLI) | payer MEDICARE, SELFPAY ==
[2024-06-25 14:49] LABS: Ferritin 57 ng/mL (8-252)
== END 2024-06-25 03:53 | disposition home or self-care (01) ==
LOC: LBO 03:53
PROVIDERS: Psychiatry & Neurology Neurology; PCP Family Medicine; Visit Provider Family Medicine
DX: R79.0 Abnormal level of blood mineral (principal); G25.81 Restless legs syndrome
CPT/HCPCS: 36415; 82728

== ENCOUNTER 2024-08-10 02:49 | Outpatient (CLI) | payer MEDICARE, SELFPAY ==
--- NOTE | 2024-08-10 09:00 | DI.MAMMO_ITS ---
Exam(s) MAMMO SCREENING EXAM: MAMMO SCREENING CLINICAL HISTORY: screening, Z12.39. TECHNIQUE: Bilateral full field digital CC and MLO mammographic images were obtained with 3D tomosyn thesis and utilizing computer aided detection (CAD). COMPARISON: Prior mammograms were reviewed. FINDINGS: Fibroglandular tissue pattern is again noted to moderately dense, this somewhat decreasing the sensit ivity of the mammogram for finding hidden underlying lesions There are no obvious new spiculated masses nor malignant appearing microcalcification groups. There is no significant architectural distortion nor skin thickening-retraction. IMPRESSION: Dense bilateral fibroglandular tissue. No obvious radiographic evidence of malignancy. BI-RADS Category 1 - Negative Breast Density - Category C - Heterogeneously dense Breast density Category C or D implies that the patient has dense breast tissue. Dense breast tissue can make it harder to find cancer on a mammogram. Dense breast tissue is also associated with an incr eased risk of breast cancer. This information about the result of the mammogram report was provided to the patient to raise their awareness. Use this report when you speak with the patient about their risks for breast cancer, which includes their family history. At that time, you may recommend additional screening tests (Ultrasoun d or MRI) as these tests may add significant information. A negative radiographic report should not delay biopsy if a dominant or clinically suspicious mass is present. Up to ten percent of cancers are not identified on mammography. A negative report may reinforce clinical impression. Adenosis and dense breasts may obscure an underlying neoplasm. False positive reports average 6 to 10%. Patient will receive a letter notifying them of these results.
== END 2024-08-10 03:09 ==
LOC: DI 02:49
PROVIDERS: PCP Family Medicine; Visit Provider Family Medicine
DX: Z12.31 Encounter for screening mammogram for malignant neoplasm of breast (principal); N60.32 Fibrosclerosis of left breast
CPT/HCPCS: 77063; 77067

== ENCOUNTER 2024-09-11 02:02 | Outpatient (CLI) | payer MEDICARE, SELFPAY ==
[2024-09-11 23:45] LABS: Hepatitis C Ab w Rflx HCV PCR Negative (Negative)
== END 2024-09-11 02:03 | disposition home or self-care (01) ==
LOC: LBO 02:02
PROVIDERS: PCP Family Medicine; Visit Provider Family Medicine
DX: Z11.59 Encounter for screening for other viral diseases (principal)
CPT/HCPCS: 36415; 86803

== ENCOUNTER → 2024-10-29 10:21 | Outpatient (BNVA) | payer MEDICARE, SELFPAY | PROVIDERS: PCP Family Medicine; Referring Provider Family Medicine; Visit Provider Psychiatry & Neurology Neurology | DX: G35 Multiple sclerosis (principal); G40.109 Localization-related (focal) (partial) symptomatic epilepsy and epileptic syndromes with simple partial seizures, not intractable, without status epilepticus; G93.40 Encephalopathy, unspecified; G47.00 Insomnia, unspecified; R35.1 Nocturia; R13.10 Dysphagia, unspecified; G25.81 Restless legs syndrome | CPT/HCPCS: 99214 ==

== ENCOUNTER 2025-03-17 03:20 | Outpatient (CLI) | payer MEDICARE, SELFPAY ==
[2025-03-17 09:10] LABS: HGB 13.6 g/dL (11.2-15.7); MCH 28.7 pg (27.0-33.0); MCHC 31.6 % (32.0-36.0); MCV 91 fL (80-95); MPV 9.3 fL (8.0-11.0); Platelet Count 216 10^3/uL (130-400); RBC 4.74 10^6/uL (3.93-5.22); RDW 14.2 % (11.7-14.6); RDW-SD 47.8 fL; WBC 4.67 10^3/uL (4.4-10.8)
[2025-03-17 10:45] LABS: Iron 77 ug/dL (50-170); Total Iron Binding Capacity 268 ug/dL (250-450); Transferrin Sat 29 % (15-50)
[2025-03-17 10:49] LABS: ALT 18 U/L (14-59); AST 17 U/L (15-37); Albumin 4.2 g/dL (3.4-5.0); Alkaline Phosphatase 60 U/L (46-116); Anion Gap 4.1 mmol/L (3-11); BUN 19 mg/dL (7-18); Bilirubin, Total 0.5 mg/dL (0.2-1.0); CO2 31.9 mmol/L (21.0-32.0); CREATININE 1.1 mg/dL (0.55-1.02); Calcium 9.8 mg/dL (8.5-10.1); Chloride 107 mmol/L (98-107); Estimated GFR 54.06 (mL/min/1.73m2); Ferritin 66 ng/mL (8-252); Glucose 89 mg/dL (74-106); Potassium 3.5 mmol/L (3.5-5.1); Sodium 143 mmol/L (136-145); Total Protein 7.3 g/dL (6.4-8.2); Vitamin D 25 Total 65 ng/mL (30-100)
== END 2025-03-17 03:21 | disposition home or self-care (01) ==
PROVIDERS: PCP Family Medicine; Visit Provider Family Medicine
DX: I10 Essential (primary) hypertension (principal); E03.9 Hypothyroidism, unspecified; N28.9 Disorder of kidney and ureter, unspecified; E83.52 Hypercalcemia; E67.3 Hypervitaminosis D
CPT/HCPCS: 36415; 80053; 82306; 85027; 82728; 83540; 83550

== ENCOUNTER → 2025-05-05 13:01 | Outpatient (BNVA) | payer MEDICARE, SELFPAY | PROVIDERS: PCP Family Medicine; Visit Provider Psychiatry & Neurology Neurology | DX: G35 Multiple sclerosis (principal); G40.109 Localization-related (focal) (partial) symptomatic epilepsy and epileptic syndromes with simple partial seizures, not intractable, without status epilepticus; G93.40 Encephalopathy, unspecified; G47.00 Insomnia, unspecified; R35.1 Nocturia; R13.10 Dysphagia, unspecified; G25.81 Restless legs syndrome | CPT/HCPCS: 99214 ==

== ENCOUNTER → 2025-08-23 13:58 | Outpatient (BNVA) | payer MEDICARE, SELFPAY | PROVIDERS: PCP Family Medicine; Referring Provider Family Medicine; Visit Provider Psychiatry & Neurology Neurology | DX: G35 Multiple sclerosis (principal); G40.109 Localization-related (focal) (partial) symptomatic epilepsy and epileptic syndromes with simple partial seizures, not intractable, without status epilepticus; G93.40 Encephalopathy, unspecified; G47.00 Insomnia, unspecified; R35.1 Nocturia; R13.10 Dysphagia, unspecified; G25.81 Restless legs syndrome; G47.10 Hypersomnia, unspecified | CPT/HCPCS: 99214 ==

== ENCOUNTER 2025-08-24 11:24 | Outpatient (CLI) | payer MEDICARE, SELFPAY ==
[2025-08-24 15:28] LABS: ALT 15 U/L (14-59); AST 16 U/L (15-37); Albumin 4.1 g/dL (3.4-5.0); Alkaline Phosphatase 58 U/L (46-116); Anion Gap 7.1 mmol/L (3-11); BUN 17 mg/dL (7-18); Bilirubin, Total 0.5 mg/dL (0.2-1.0); CO2 30.9 mmol/L (21.0-32.0); Calcium 9.5 mg/dL (8.5-10.1); Chloride 106 mmol/L (98-107); Estimated GFR 60.61 (mL/min/1.73m2); Glucose 89 mg/dL (74-106); Potassium 3.7 mmol/L (3.5-5.1); Sodium 144 mmol/L (136-145); TSH (W/Ref FT4) 0.34 uIU/mL (0.36-3.74); Total Protein 7.3 g/dL (6.4-8.2); Vitamin B12 408 pg/mL (193-986)
== END 2025-08-24 11:25 | disposition home or self-care (01) ==
LOC: LOS 11:25
PROVIDERS: PCP Family Medicine; Referring Provider Family Medicine; Visit Provider Family Medicine
DX: R79.89 Other specified abnormal findings of blood chemistry (principal); E03.9 Hypothyroidism, unspecified; I10 Essential (primary) hypertension
CPT/HCPCS: 36415; 80053; 82607; 84439; 84443

== ENCOUNTER 2025-08-31 01:16 | Outpatient (CLI) | payer MEDICARE, SELFPAY ==
--- NOTE | 2025-08-31 07:30 | DI.MAMMO_ITS ---
Exam(s) MAMMO SCREENING EXAM: MAMMO SCREENING CLINICAL HISTORY: screening, Z12.39. TECHNIQUE: Bilateral full field digital CC and MLO mammographic images were obtained with 3D tomosynthesis and utilizing computer aided detection (CAD). COMPARISON: Prior mammograms were reviewed. FINDINGS: There has been no significant change in the appearance and distribution of the fibroglandular tissue. There are no new spiculated masses nor malignant appearing microcalcification groups. There is no significant architectural distortion nor skin thickening-retraction. IMPRESSION: No radiographic evidence of malignancy. BI-RADS Category 1 - Negative Breast Density - Category C - The breast are heterogeneously dense, which may obscure small masses. Breast density Category C or D implies that the patient has dense breast tissue. Dense breast tissue can make it harder to find cancer on a mammogram. Dense breast tissue is also associated with an increased risk of breast cancer. This information about the result of the mammogram report was provided to the patient to raise their awareness. Use this report when you speak with the patient about their risks for breast cancer, which includes their family history. At that time, you may recommend additional screening tests (Ultrasound or MRI) as these tests may add significant information. A negative radiographic report should not delay biopsy if a dominant or clinically suspicious mass is present. Up to ten percent of cancers are not identified on mammography. A negative report may reinforce clinical impression. Adenosis and dense breasts may obscure an underlying neoplasm. False positive reports average 6 to 10%. Patient will receive a letter notifying them of these results.
== END 2025-08-31 01:36 ==
PROVIDERS: PCP Family Medicine; Visit Provider Family Medicine
DX: Z12.31 Encounter for screening mammogram for malignant neoplasm of breast (principal); R92.323 Mammographic fibroglandular density, bilateral breasts
CPT/HCPCS: 77063; 77067